=== PATIENT | female | born 1965 | race Caucasian/White ===

== ENCOUNTER → 2017-05-24 13:42 | Outpatient (CLI) | payer OTHER, SELFPAY ==
--- NOTE | 2017-05-24 13:52 | HPBI_ITS ---
MAMMOGRAPHY - BILATERAL DIAGNOSTIC REASON FOR EXAM: Female, 51 years old. Left breast lump and tenderness at the 5:00 position of the breast. PERTINENT HISTORY: Non-contributory. TECHNIQUE: Digital bilateral breast emerson (3D mammographic acquisition) in the CC and MLO projections. 2-D mediolateral oblique (MLO) and craniocaudad (CC) views of both breasts were obtained. Compression spot views of the left breast were obtained as well in the mediolateral oblique and craniocaudad projections. CAD: Full Field Digital Mammography with Computer Added Detection was performed. COMPARISON: Comparison is made with prior examination dated April 08, 2016 and April 02, 2014. FINDINGS: Breast Composition: The breasts are heterogeneously dense, which may obscure small masses. There is a 2 cm x 2.5 cm well-defined nodule in the retroareolar region of the left breast. Adjacent to this, a smaller well-defined nodule is seen. Correlation with ultrasound is recommended. No clustered microcalcification is seen. Stable appearance of the bilateral axillary lymph nodes. No other significant abnormalities are identified. HPBI/DIAG MAMM W/CAD, BILAT IMPRESSION: 2 nodular densities seen in the left breast as described. Correlation with ultrasound is recommended. ASSESSMENT CATEGORY: BIRADS Category 0: Incomplete. Need additional imaging evaluation. A letter regarding these results will be sent to the patient by the facility within 30 days. Approximately 10% of breast cancers are not detected by mammography. A normal mammogram should not delay biopsy of a clinically suspicious abnormality. Electronically Signed: Neo Fink MD at 15:48 EST Tel [phone], Service support ,
--- NOTE | 2017-05-24 13:53 | US_ITS ---
STUDY: ULTRASOUND BREAST - LEFT REASON FOR EXAM: Female, 51 years old. Palpable lump left breast. TECHNIQUE: Axial and longitudinal images of the LEFT breast were performed with a high resolution ultrasound transducer. COMPARISON: Comparison is made with prior mammogram done earlier today. FINDINGS: LEFT Breast: There is a 1.4 cm x 1.9 cm x 1.1 cm cyst at the 5:00 position in the breast at 3 cm from the nipple. This corresponds to the palpable abnormality. This also evidence of a 1.4 cm x 0.9 cm x 0.9 cm cyst at the 6:00 position of the breast at 3 cm from the nipple. US/Breast Limited Unilateral IMPRESSION: 2 cysts are seen in the left breast as described. Routine annual mammographic follow-up is recommended. ASSESSMENT CATEGORY: BIRADS Category 2: Benign. A letter regarding these results will be sent to the patient by the facility within 30 days. Electronically Signed: Neo Fink MD at 14:52 EST Tel [phone], Service support ,
== END ==
DX: N60.02 Solitary cyst of left breast (principal)
CPT/HCPCS: 76642; 77062; 77066; G0279

== ENCOUNTER → 2018-04-11 10:31 | Outpatient (CLI) | payer OTHER, SELFPAY ==
[2018-04-11 09:34] VITALS: BMI 36.4
--- NOTE | 2018-04-11 10:37 | VDLE_ITS ---
Reason For Study: Bilateral leg pain RIGHT LEFT GSV is normal. GSV is normal. CFV is compressible, spontaneous, phasic, CFV is compressible, spontaneous, phasic, competent and demonstrates normal competent, and demonstrates normal augmentation. augmentation. FV is compressible, spontaneous, phasic, FV is compressible, spontaneous, phasic, competent and demonstrates normal competent and demonstrates normal augmentation. augmentation. POP V is compressible, spontaneous, phasic, POP V is compressible, spontaneous, phasic, competent and demonstrates normal competent and demonstrates normal augmentation. augmentation. T/P Trunk is compressible. T/P Trunk is compressible. PTV is compressible. PTV is compressible. RT PerV is compressible. LT PerV is compressible. Procedure Exam performed in department. A preliminary report was called and/or faxed to [facility]. Interpretation Summary Deep veins of the lower extremities are bilaterally patent and compressible segmentally. There is no evidence of deep vein thrombosis on either side. Valvular competence appears intact within the proximal deep venous systems bilaterally. The greater saphenous veins appear bilaterally patent and compressible segmentally. Ordering Physician: Andrew Santiago Referring Physician: Jameson Mendoza Performed By: Erick Salomon RVT and Student
[2018-04-11 10:59] LABS: Hematocrit 38.5 % (37-47); Hemoglobin 12.7 g/dl (12.0-15.0); Mean Corpuscular Hgb 29.6 pg (27.0-32.0); Mean Corpuscular Volume 89.7 fL (81-99); Mean Platelet Vol. 9.6 fl (6.2-12.0); Platelet Count 250 K/mm3 (150-450); RBC Distribution Width CV 11.8 % (11.6-14.6); RBC Distribution Width SD 38.1 fl (35.1-43.9); Red Blood Count 4.29 M/mm3 (4.2-5.4); Scan Indicated on CBC? Y/N NO; White Blood Count 6.8 K/mm3 (4.4-11.0)
[2018-04-11 11:11] LABS: ALB/GLOB Ratio 0.9 RATIO (0.9-2.4); AST(SGOT) 16 U/L (15-37); Alanine Aminotransfer ALT/SGPT 19 U/L (13-56); Albumin, Serum 3.5 g/dL (3.2-5.0); Alkaline Phosphatase 94 U/L (45-117); Anion Gap 7 (5-15); BUN 15 mg/dL (7-18); BUN/Creat Ratio 20.7 RATIO (10-20); Calcium,Total 8.5 mg/dL (8.5-10.1); Chloride 105 mmol/L (98-107); Creatinine, Serum 0.72 mg/dL (0.55-1.02); EST Glomerular Filtration Rate 90 mL/min (>60); Est Glom Filt Rate - Afr Amer 109 mL/min (>60); Globulin 4.1 g/dL (2.2-4.2); Glucose 88 mg/dL (74-106); Potassium 3.7 mmol/L (3.5-5.1); Protein, Total 7.6 g/dL (6.4-8.2); Sodium Level 139 mmol/L (136-145)
[2018-04-11 11:54] LABS: D-Dimer Quantitative (DVT/PE) 0.69 FEU/ug/m (0.27-0.49)
--- OUTSIDE RECORDS SUMMARY | 2018-06-13 13:23 | XMS RPT_ITS ---
:1965 Author Organization [facility] Care Team Providers Name Role Phone Jameson Mendoza Attending Unavailable HAILEY BRADY Attending Unavailable HAILEY BRADY Primary Care Unavailable Andrew Santiago TELEHEALTH CASE MANAGER-C Attending Unavailable Andrew Santiago TELEHEALTH CASE MANAGER-Edgardo Referring Unavailable Jameson Mendoza Primary Care Unavailable PROBLEMS PROBLEMS DATE TYPE CONDITION / CODE ATTENDING STATUS SOURCE 04/11/2018 Unknown R60.0 - Andrew Santiago TELEHEALTH CASE MANAGER-C Active [place] Localized edema Community / R60.0(ICD-10) Hospital Repository 04/11/2018 Unknown M79.604 - Pain Andrew Santiago TELEHEALTH CASE MANAGER-C Active [place] in right leg / Community M79.604(ICD-10) Hospital Repository 04/11/2018 Unknown M79.605 - Pain Andrew Santiago TELEHEALTH CASE MANAGER-Edgardo Active [place] in left leg / Community M79.605(ICD-10) Hospital Repository 04/11/2018 Unknown Z86.711 - Santiago, Andrew TELEHEALTH CASE MANAGER-C Active [place] [facility] pulmonary [facility] embolism / Repository Z86.711(ICD-10) PROCEDURES PROCEDURES No Procedure Records FoundRESULTS RESULTS INTERNAL MEDICINE Observed: 04/13/2018 Status: F Source: [place] OFFICE VISIT 10:56 AM [facility] [place] [facility] [address] [place] [address] OFFICE VISIT Date of Service: 04/11/18 MR#: [id number] Acct: [id number] Name: KENAN ESPINOSA Rep #: [id number] : 1965 Provider: Jamseon Mendoza MD Age/Sex: 52/F Location: [facility] Status: Signed Intake Vital Signs04/11/18 Height 5 ft 5 in 04/11/18 Weight: 219 lb 04/11/18 Body Mass Index (BMI) 36.4 04/11/18 Blood Pressure 140/91 H Intake Visit Reasons: EST PCP Chief Complaint: Bilat Lower leg AND feet swelling AND pain Is patient in pain?: Yes (Bilat feet - walking ) Pain scale (1-10): 7 Allergies cephalexin monohydrate [From Keflex] Allergy (Verified 04/11/18 09:27) Other sulfamethoxazole [From Bactrim] Allergy (Verified 04/11/18 09:27) Other trimethoprim [From Bactrim] Allergy (Verified 04/11/18 09:27) Other Medications ALPRAZolam [Xanax] 0.5 mg PO QHS 12/22/15 [History Confirmed 04/11/18] doxycycline monohydrate 100 mg capsule 100 mg PO BID #14 cap 04/11/18 [Rx Confirmed 04/11/18] PFSH Medical History Staph aureus infection (Resolved) Pulmonary embolus (Resolved) Surgical History History of cholecystectomy (Acute) History of hysterectomy (Acute) History of oophorectomy (Acute) Family History Grandmother Ovarian cancer Sister Diabetes Type 1 Father Heart disease Grandmother Multiple sclerosis Social History Smoking Status: Current every day smoker alcohol intake: current alcohol intake frequency: holidays/special occasions only substance use type: does not use what type of physical activity do you participate in: walking HPI HPI Chief Complaint: Bilat Lower leg AND feet swelling AND pain Details: KENAN ESPINOSA, is a 52 F who presents to the office today for an acute visit of bilateral leg swelling and pain. Patient has a past medical history as listed above significant for pulmonary embolism. Patient presents today with bilateral lower extremity leg swelling that started three days ago. Patient stated she was at home all day doing things around the house and she noticed her feet getting swollen. Since Tuesday she states that the swelling has significantly increased and is having pain around ankle in right and left leg. Her pain is most intense at the ankle with walking. She describes her feet as warm to touch. Patient states she noticed today she was having a darker discoloration in her toes at times. Patient denies any shortness of breath, tachycardia, palpitations, or chest discomfort. Patient denies any other aggravating or alleviating factors. She states she is anxious because she had a history of a PE in 2011 after traveling an extended period of time. She was Xarelto for 1 year prophylactically after PE. She denies any recent travel or prolonged periods of sitting and activity. The patient otherwise denies any fever, chills, nausea, vomiting, shortness of breath, chest pain or pressure, palpitations, orthopnea, syncope or presyncopal episodes. ROS Const Constitutional: No chills, fatigue, fever(s), frequent falls, malaise, weakness, sleep problems or change in appetite Eyes Eyes: No blurry vision, change in vision, double vision, discharge or visual disturbances ENT ENT: No abnormal hearing, ear pain, ear pressure, tinnitus or dizziness/vertigo Resp Respiratory: No cough, shortness of breath or wheezing Cardio Cardiology: Positive for generalized swelling (Bilat lower legs AND feet); no chest pain at rest, chest pain with exertion, shortness of breath, dyspnea on exertion, irregular heart rhythm, lightheadedness, orthopnea, fast heart rate or palpitations Gastro GI: No abdominal pain, change in bowel habits, constipation, diarrhea, nausea/dyspepsia or vomiting Genitourinary-Female: No difficulty urinating, burning urination, painful urination, urinary incontinence, urinary frequency, urinary urgency, urinary hesitancy, urinary retention, Frequent nighttime urination/ nocturia, sexual problems, genital lesions, abnormal vaginal bleeding, pelvic pain, vaginal dryness, vaginal odor or Vaginal Itching Musc Musculoskeletal: Positive for joint pain (Bilat lower legs AND feet) and joint swelling (Lower legs AND feet); no back pain, limited range of motion, numbness, tingling or muscle weakness Skin Skin: No change in skin color, itching, rash or wounds Breast Breast: No breast lump or breast pain Neuro Neurology: No frequent falls, weakness, visual disturbances, abnormal hearing, numbness, tingling, unsteady gait/balance, dizziness, loss of vision or memory loss Psych Psychiatric: No change in appetite, No memory loss, No anxiety, No depression, No Thoughts of harming yourself/Others Endo Endocrine: No fatigue, heat intolerance, increased thirst/drinking, increased hunger or increased urination Aller/Imm Allergy/Immunologic: No wheezing, itchy eyes or seasonal allergy symptoms James/Lymp Hematologic/Lymphatic: No easy bleeding, easy bruising or enlarged lymph nodes Exam Const General: cooperative, comfortable, no acute distress Nutritional Appearance: well nourished, overweight Orientation: alert, oriented x3 Limitations: mental status not altered Neck Neck: normal visual inspection, no lymphadenopathy Resp Effort AND Inspection: normal respiratory effort, able to speak in complete sentences, normal respiratory pattern, symmetric chest movement, no audible wheezes, no cough Auscultation: Bilateral: Clear to Auscultation Cardio Palpation: normal PMI Rate: regular rate Heart Sounds: S1 normal, S2 normal, normal S1 and S2, no click, no gallops, no murmurs, no rubs Musc Musculoskeletal: Yes joint tenderness; no decreased ROM or muscle weakness Other: tenderness and warmth noted around bilateral ankles and warmth continues to b/l dorsal feet, pedal pulses +1, toes slightly cool to touch, negative homans sign bilateral Skin General: no rashes or lesions noted, elasticity normal, turgor normal Lesions: no lesions Rashes: no rashes Neuro General: alert, awake, oriented x3, CN's II-XI intact bilaterally Speech: speech normal Gait: normal gait Motor: muscle tone normal throughout Extrem General: normal to inspection, normal gait, pedal edema bilaterally, edema (bilateral lower extremities) Laterality: bilateral Psych Appearance: grossly normal Mental Status: mental status grossly normal Affect: normal affect Attitude: cooperative Thought Process: normal Assessment AND Plan Problems 1. Bilateral lower leg cellulitis L03.116; L03.115 2. Pain in both lower extremities M79.604; M79.605 3. History of pulmonary embolism Z86.711 Plan Due to patient history of presenting symptoms and assessment, venous duplex ultrasound ordered to check for DVT. Preliminary report came back negative for acute DVT. Lab work ordered and d-dimer level slightly elevated at 0.69. Due to DVT being ruled out and patient having no respiratory symptoms/cardiac symptoms the plan will be to treat patient empirically for cellulitis with doxycycline 100 mg PO BID for 10 days. Reinforced again with patient signs and symptoms of pulmonary embolism that require urgent medical attention and instructed her that if these occur she should go immediately to the emergency department. She again denies any chest pain, shortness of breath, or increased heart rate. Patient to follow-up this upcoming Tuesday for establishment visit or sooner if needed. This note was generated with [employer] dictation software. It may contain incorrect words, spelling, and punctuation that were not noted in checking the note before signing. Orders Orders: Medications New: Coding Level of Care Code Off vis,new,level 3 Diagnoses Bilateral lower leg cellulitis L03.116; L03.115 Pain in both lower extremities M79.604; M79.605 History of pulmonary embolism Z86.711 04/13/18 1056 <Electronically signed by Andrew MERRITT> Date Andrew MERRITT Cosigner Signature: Date (if applicable) CC: VENOUS DUPLEX LOWER Observed: 04/11/2018 Status: F Source: [place] EXTREMITY 4:38 PM [facility] [place] [facility] Cardiovascular Services [facility] [place] [address] Venous Duplex US - Samy Extrem 04/11/18 1039 MR#: [id number] Acct: [id number] Name: KENAN ESPINOSA Rep #: [id number] : 1965 52 From: Dejon Godinez MD Attending Dr: Andrew Santiago NP Status: REG CLI Ordering Dr: Andrew Santiago NP-C Date: 04/11/18 Location: [facility] Sex: F C Admitted: Reason For Study: Bilateral leg pain RIGHT LEFT GSV is normal. GSV is normal. CFV is compressible, spontaneous, phasic, CFV is compressible, spontaneous, phasic, competent and demonstrates normal competent, and demonstrates normal augmentation. augmentation. FV is compressible, spontaneous, phasic, FV is compressible, spontaneous, phasic, competent and demonstrates normal competent and demonstrates normal augmentation. augmentation. POP V is compressible, spontaneous, phasic, POP V is compressible, spontaneous, phasic, competent and demonstrates normal competent and demonstrates normal augmentation. augmentation. T/P Trunk is compressible. T/P Trunk is compressible. PTV is compressible. PTV is compressible. RT PerV is compressible. LT PerV is compressible. Procedure Exam performed in department. A preliminary report was called and/or faxed to [facility]. Interpretation Summary Deep veins of the lower extremities are bilaterally patent and compressible segmentally. There is no evidence of deep vein thrombosis on either side. Valvular competence appears intact within the proximal deep venous systems bilaterally. The greater saphenous veins appear bilaterally patent and compressible segmentally. Ordering Physician: Andrew Santiago Referring Physician: Jameson Mendoza Performed By: Erick Salomon RVT and Student 04/11/18 1638 Date Dejon Godinez MD CC: Jameson Mendoza MD; Andrew Santiago NP Date Dictated: 04/11/18 1039 Date Transcribed: 04/11/18 1638 Quantitative Software Engineer: Signed CBC-COMPLETE BLOOD CNT Collected: 04/11/2018 Status: F Source: [place] NO DIFF 10:39 AM [facility] [place] TYPE CODE TESTS RESULT OUT OF RANGE REFERENCE UNITS LAB L100.1000 4.4-11.0 K/mm3 Normal WBC 6.8 LAB L100.1200 4.2-5.4 M/mm3 Normal RBC 4.29 LAB L100.1300 12.0-15.0 g/dl Normal HGB 12.7 LAB L100.1400 37-47 % Normal HCT 38.5 LAB L100.1500 81-99 fL Normal MCV 89.7 LAB L100.1600 27.0-32.0 pg Normal MCH 29.6 LAB L100.1700 32-36 g/gl Normal MCHC 33.0 LAB L100.1810 11.6-14.6 % Normal RDW CV 11.8 LAB L100.1820 35.1-43.9 fl Normal RDW SD 38.1 LAB L100.1900 150-450 K/mm3 Normal PLT 250 LAB L100.2000 6.2-12.0 fl Normal MPV 9.6 Performed By: #### L100.0500 #### [facility] [address] [place], [place], [address] COMPREHENSIVE METABOLIC Collected: 04/11/2018 Status: F Source: [place] PROFIL 10:39 AM [facility] [place] TYPE CODE TESTS RESULT OUT OF RANGE REFERENCE UNITS LAB L501.0100 74-106 mg/dL Normal GLU 88 Result Comment: Please note revised GLUCOSE reference range effective 2017. LAB L501.1000 7-18 mg/dL Normal BUN 15 LAB L501.1100 0.55-1.02 mg/dL Normal CREAT,SERUM 0.72 Result Comment: The validity of the calculated GFR AND GFRAA in patients over 70 years has not been determined. Clinical correlation is essential. LAB L501.1110 >60 mL/min Normal EST GFR 90 Result Comment: Non- GFR Calc LAB L501.1115 >60 mL/min Normal EST GFR - AA 109 Result Comment: GFR Calc LAB L501.1300 10-20 RATIO High BUN/CRE 20.7 LAB L501.1500 6.4-8.2 g/dL T Normal PROT 7.6 LAB L501.1800 3.2-5.0 g/dL Normal ALB 3.5 LAB L501.1950 2.2-4.2 g/dL Normal GLOB 4.1 LAB L501.2000 0.9-2.4 RATIO Normal A/G 0.9 LAB L501.2200 8.5-10.1 mg/dL CA Normal 8.5 LAB L501.4100 15-37 U/L Normal AST 16 LAB L501.4305 45-117 U/L Normal ALK P 94 LAB L501.4405 13-56 U/L Normal ALT 19 LAB L501.4600 0.20-1.00 mg/dL T Normal BILI 0.30 LAB L501.5300 136-145 mmol/L NA Normal 139 LAB L501.5600 3.5-5.1 mmol/L K Normal 3.7 LAB L501.5900 98-107 mmol/L CL Normal 105 LAB L501.6100 21.0-32.0 mmol/L Normal CO2 27.0 LAB L501.6200 5-15 Normal GAP 7 Performed By: #### L500.4050 #### [facility] [address] [place], [address] D-DIMER QUANTITATIVE Collected: 04/11/2018 Status: F Source: [place] (DVT/PE) 10:39 AM [facility] TYPE CODE TESTS RESULT OUT OF RANGE REFERENCE UNITS LAB L300.8000 0.27-0.49 FEU/ug/m High alert D-DIMER 0.69 QUANT Result Comment: D-Dimer ELEVATED (>0.49): Additional studies and clinical assessments are indicated to conclude diagnosis of: Deep Vein Thrombosis (DVT) or Pulmonary Embolism (PE) RESULTS CALLED TO JACKELINE FERRERA 04/11/18 1154 Sonya Dee. REPORT READ BACK BY SAME. Performed By: #### L300.8000 #### [facility] [address] [place], [address] BREAST LIMITED Observed: 05/24/2017 Status: F Source: [place] UNILATERAL 1:53 PM [facility] REPOSITORY [facility] Imaging Services [address] [place] [address] Breast Limited Unilateral MR#: [id number] Acct: [id number] Name: KENAN ESPINOSA Rep #: [id number] : 1965 F 51 From: Neo Fink MD PCP: OUT OF TOWN DOCTOR Status: REG CLI Study: Breast Limited Unilateral Date of Exam: 05/24/17 Exam# [id number] Ordering Dr: ELIJAH BAUER STUDY: ULTRASOUND BREAST - LEFT REASON FOR EXAM: Female, 51 years old. Palpable lump left breast. TECHNIQUE: Axial and longitudinal images of the LEFT breast were performed with a high resolution ultrasound transducer. COMPARISON: Comparison is made with prior mammogram done earlier today. FINDINGS: LEFT Breast: There is a 1.4 cm x 1.9 cm x 1.1 cm cyst at the 5:00 position in the breast at 3 cm from the nipple. This corresponds to the palpable abnormality. This also evidence of a 1.4 cm x 0.9 cm x 0.9 cm cyst at the 6:00 position of the breast at 3 cm from the nipple. US/Breast Limited Unilateral IMPRESSION: 2 cysts are seen in the left breast as described. Routine annual mammographic follow-up is recommended. ASSESSMENT CATEGORY: BIRADS Category 2: Benign. A letter regarding these results will be sent to the patient by the facility within 30 days. Electronically Signed: Neo Fink MD at 14:52 EST Tel [phone], Service support , CC: ELIJAH BAUER; OUT OF TOWN DOCTOR Quantitative Software Engineer: Signed DIAG MAMM W/CAD, Observed: 05/24/2017 Status: F Source: [place] BILAT 1:53 PM [facility] [place] [facility] Imaging Services [address] [place] [address] DIAG MAMM W/CAD, BILAT MR#: [id number] Acct: [id number] Name: KENAN ESPINOSA Rep #: [id number] : 1965 F 51 From: Neo Fink MD PCP: OUT OF TOWN DOCTOR Status: REG CLI Study: DIAG MAMM W/CAD, BILAT Date of Exam: 05/24/17 Exam# [id number] Ordering Dr: ELIJAH BAUER MAMMOGRAPHY - BILATERAL DIAGNOSTIC REASON FOR EXAM: Female, 51 years old. Left breast lump and tenderness at the 5:00 position of the breast. PERTINENT HISTORY: Non-contributory. TECHNIQUE: Digital bilateral breast emerson (3D mammographic acquisition) in the CC and MLO projections. 2-D mediolateral oblique (MLO) and craniocaudad (CC) views of both breasts were obtained. Compression spot views of the left breast were obtained as well in the mediolateral oblique and craniocaudad projections. CAD: Full Field Digital Mammography with Computer Added Detection was performed. COMPARISON: Comparison is made with prior examination dated April 08, 2016 and April 02, 2014. FINDINGS: Breast Composition: The breasts are heterogeneously dense, which may obscure small masses. There is a 2 cm x 2.5 cm well-defined nodule in the retroareolar region of the left breast. Adjacent to this, a smaller well-defined nodule is seen. Correlation with ultrasound is recommended. No clustered microcalcification is seen. Stable appearance of the bilateral axillary lymph nodes. No other significant abnormalities are identified. HPBI/DIAG MAMM W/CAD, BILAT IMPRESSION: 2 nodular densities seen in the left breast as described. Correlation with ultrasound is recommended. ASSESSMENT CATEGORY: BIRADS Category 0: Incomplete. Need additional imaging evaluation. A letter regarding these results will be sent to the patient by the facility within 30 days. Approximately 10% of breast cancers are not detected by mammography. A normal mammogram should not delay biopsy of a clinically suspicious abnormality. Electronically Signed: Neo Fink MD at 15:48 EST Tel [phone], Service support , CC: ELIJAH BAUER; OUT OF TOWN DOCTOR Quantitative Software Engineer: Signed ALLERGIES ALLERGIES DATE TYPE / CODE NAME / CODE REACTION SEVERITY SOURCE 04/11/2018 Drug cephalexin Other Unknown [place] Allergy/416 monohydrate/F0000 [place] [id number]([facility] [address]([facility] ED CT) Repository 04/11/2018 Drug sulfamethoxazole/ Other Unknown [place] Allergy/416 [id number]([facility] [address]([facility] ED CT) Repository 04/11/2018 Drug trimethoprim/F006 Other Unknown [place] Allergy/416 384148(RXNORM) [place] [id number]([facility] ED CT) Repository ENCOUNTERS ENCOUNTERS ADMIT/DISCHARGE ACCOUNT ADMITTING ENCOUNTER LOCATION SOURCE NUMBER CLASS 04/11/2018 [id number] Ambulatory [place] 4 [facility] ing:[facility] Repository 04/11/2018/ [id number] Ambulatory BMSBuilding:B [place] 9 2 MS.BIM [facility] Repository 05/24/2017 [id number] Ambulatory [place] 6 [facility] ing:[facility] Repository PAYERS PAYERS ENCOUNTER GUARANTOR PAYER SUBSCRIBER SOURCE 04/11/2018 KENAN Reynoso Primary [place] [id number] Insurance:Megan BROWNB: [place], [place] Number: [id number] [address]Wrw: (992) [id number] Repository [phone] () Date:5615-29-14[address], [place] [address]BJ: 04/11/2018 Secondary NOT GIVENUNK [place] Insurance:SELF PAY [facility] Number: Effective Repository Date:2018-04-11 04/11/2018 KENAN ESPINOSA670 Primary KENAN BROWNB: [place] Insurance:[facility] [id number] [facility] [place] Number: [facility] [address]Bnq: ([phone]) [id number] Repository [phone] () Date:6968-03-98[address], [place] [address]DQ: 04/11/2018 Secondary NOT GIVENUNK [place] Insurance:SELF PAY [facility] Number: Effective Repository Date:2018-04-11 05/24/2017 KENAN MCNAIR0 Primary KENAN BROWNB: [place] Insurance:[id number] [address] [id number]: ([phone]) Number: Repository [phone] () [id number] Date:3936-28-03[address], [place] [address]LZ: 05/24/2017 Secondary NOT GIVENUNK [place] Insurance:SELF PAY [facility] Number: Effective Repository Date:2017-05-23
== END ==
PROVIDERS: Family Provider Internal Medicine; PCP Internal Medicine; Referring Provider Nurse Practitioner Family; Visit Provider Nurse Practitioner Family
DX: R60.0 Localized edema (principal); M79.604 Pain in right leg; M79.605 Pain in left leg; Z86.711 Personal history of pulmonary embolism
CPT/HCPCS: 36415; 80053; 85027; 85379; 93970

== ENCOUNTER → 2018-04-17 15:39 | Outpatient (CLI) | payer OTHER, SELFPAY ==
[2018-04-17 14:49] VITALS: BMI 36.4
--- NOTE | 2018-04-17 15:44 | RAD_ITS ---
STUDY: X-RAY - LUMBAR SPINE REASON FOR EXAM: Female, 52 years old. Back pain TECHNIQUE: 5 view(s) of the lumbar spine were obtained. COMPARISON: None FINDINGS: Normal lumbar lordosis. There is no substantial scoliosis. There is a normal alignment of the vertebrae. Normal vertebral bodies and endplates. Normal disc space heights. The soft tissue structures are unremarkable. RAD/L/S Spine Min 4 Views IMPRESSION: Normal x-ray examination of the lumbar spine. Electronically Signed: Denilson Stock MD at 7:42 EST , Service support ,
== END ==
PROVIDERS: Family Provider Internal Medicine; PCP Internal Medicine; Referring Provider Internal Medicine; Visit Provider Internal Medicine
DX: G62.9 Polyneuropathy, unspecified (principal); M54.5 Low back pain
CPT/HCPCS: 72110

== ENCOUNTER → 2018-04-22 10:41 | Outpatient (CLI) | payer OTHER, SELFPAY ==
[2018-04-17 14:49] VITALS: BMI 36.4
[2018-04-22 11:48] LABS: Erythrocyte Sedimentation Rate 31 mm/hr (0-30)
[2018-04-22 12:27] LABS: Hemoglobin A1c 5.5 % (4.2-6.3)
[2018-04-22 12:36] LABS: CPK Total, Creatine Kinase 59 U/L (26-192); Rheumatoid Factor < 10.0 IU/mL (<15); Thyroid Stim Hormone (TSH) 2.34 uIU/mL (0.358-3.74)
[2018-04-24 11:42] LABS: HIV - WCH Non-Reactive (Nonreactive); Vitamin B12 322 pg/mL (211-911)
[2018-04-24 14:07] LABS: RNP Ab 0.6 AI (0.0-0.9); Smith Ab <0.2 AI (0.0-0.9)
[2018-04-25 08:55] LABS: ANTINUCLEAR ANTIBODIES DIRECT Negative (Negative)
[2018-04-27 20:19] LABS: Arsenic, Urine 24 H 19 ug/24 hr (0-50); PROEL- Albumin 3.3 g/dL (2.9-4.4); PROEL- Alpha-1 Globulin 0.3 g/dL (0.0-0.4); PROEL- Alpha-2 Globulin 0.9 g/dL (0.4-1.0); PROEL- Beta Globulin 1.1 g/dL (0.7-1.3); PROEL- Globulin, Total 3.4 g/dL (2.2-3.9); PROEL- TOTAL PROTEIN 6.7 g/dL (6.0-8.5)
[2018-04-28 16:50] LABS: Hep C Antibodies 0.1 s/co ratio (0.0-0.9)
[2018-04-28 16:51] LABS: ARSENIC (TOTAL), URINE 17 ug/L (0-50)
== END ==
PROVIDERS: Family Provider Internal Medicine; PCP Internal Medicine; Referring Provider Psychiatry & Neurology Neurology; Visit Provider Psychiatry & Neurology Neurology
DX: G62.9 Polyneuropathy, unspecified (principal); R20.2 Paresthesia of skin; R53.1 Weakness; R53.83 Other fatigue; R73.9 Hyperglycemia, unspecified
CPT/HCPCS: 36415; 82175; 82550; 82570; 82607; 82746; 83036; 83655; 83825; 84165; 84443; 85652; 86038; 86235; 86431; 86703; 86803

== ENCOUNTER → 2018-04-26 17:11 | Outpatient (CLI) | payer OTHER, SELFPAY ==
[2018-04-17 14:49] VITALS: BMI 36.4
--- NOTE | 2018-04-26 17:11 | MRI_ITS ---
HISTORY: bilateral leg weakness, stabbing/prickling pain, swelling x 2 weeks EXAM/TECHNIQUE: MR Spine Lumbar W/O Contrast: 1.5 Estephanie magnet. COMPARISON: 07/15/14 CT abdomen pelvis. 04/17/18 lumbar spine radiographs. FINDINGS: # of images incl. paperwork: 130 Alignment anatomic. No fracture or concerning signal changes in the vertebrae. Scattered incidental vertebral body hemangiomas are noted. Disc height and signal preserved with very little disc degeneration for age. Mild facet degeneration mid to lower lumbar spine. Conus medullaris terminates at the level of the L1 superior endplate with normal contour and signal. No significant spinal canal or foraminal narrowing. No evidence of nerve root impingement. Normal arborization of the cauda equina. Paraspinal soft tissues unremarkable. MRI/Spine Lumbar (Routine) IMPRESSION: Very mild facet degeneration for age. No evidence of nerve root impingement or etiology for radiculopathy identified. at 0413 Reported and signed by: Roman Gutierrez MD Electronically Signed: Roman Gutierrez, at 4:12 EST Tel , Service support ,
== END ==
PROVIDERS: Family Provider Internal Medicine; PCP Internal Medicine; Referring Provider Internal Medicine; Visit Provider Internal Medicine
DX: M54.5 Low back pain (principal)
CPT/HCPCS: 72148

== ENCOUNTER → 2018-05-03 08:23 | Outpatient (CLI) | payer OTHER, SELFPAY ==
[2018-05-02 14:58] VITALS: BMI 36.4
== END ==
PROVIDERS: Family Provider Internal Medicine; PCP Internal Medicine; Referring Provider Internal Medicine; Visit Provider Internal Medicine
DX: R79.89 Other specified abnormal findings of blood chemistry (principal); R59.0 Localized enlarged lymph nodes
CPT/HCPCS: 36415; 71275; 85379; Q9967

== ENCOUNTER → 2018-05-03 14:21 | Outpatient (CLI) | payer OTHER, SELFPAY ==
[2018-05-02 14:58] VITALS: BMI 36.4
--- NOTE | 2018-05-03 14:23 | CT_ITS ---
STUDY: CTA CHEST REASON FOR EXAM: Female, 52 years old. Intermittent chest pain. Lower extremity swelling. Elevated d-dimer. RADIATION DOSAGE (If Supplied By Facility): CTDIvol = ( 18.42 ) mGy, DLP = ( 628.67 ) mGycm TECHNIQUE: The examination was performed with the intravenous administration of Isovue 370 100mL IV. Post-processing of the angiographic images was performed, with multiplanar reformation and 3D reconstruction. Individualized dose optimization techniques were used for this CT. COMPARISON: None. FINDINGS: Normal enhancement of the main pulmonary artery and right and left pulmonary arteries. Normal enhancement of the bilateral peripheral pulmonary arteries. There is no demonstrated pulmonary embolism. Normal thoracic aorta and visualized great vessels. There is no demonstrated aortic dissection. Normal heart and pericardium. Multiple enlarged mediastinal lymph nodes. The largest is in the right paratracheal region. This measures 2.4 cm x 3.3 cm. Enlarged subcarinal lymph nodes as well as right hilar lymph node measuring 3 cm x 2.4 cm. Normal visualized trachea and bronchi. The lungs are well expanded. Normal pulmonary parenchyma. Normal pleura. Normal chest wall structures. There are degenerative changes of thoracic spine. Small hiatal hernia. 8.8 mm cyst in the anterior aspect of the right lobe of the liver. There is also evidence of a 7.6 mm cyst in the mid lateral aspect of the right lobe of the liver. CT/CTA Chest W/WO Contrast IMPRESSION: Enlarged mediastinal and right hilar lymph nodes. There is no evidence of pulmonary embolism. Electronically Signed: Neo Fink MD at 15:35 EST , Service support ,
== END ==
PROVIDERS: Family Provider Internal Medicine; PCP Internal Medicine; Referring Provider Internal Medicine; Visit Provider Internal Medicine
DX: R79.89 Other specified abnormal findings of blood chemistry (principal); R59.0 Localized enlarged lymph nodes
CPT/HCPCS: 71275; Q9967

== ENCOUNTER → 2018-05-05 09:55 | Outpatient (CLI) | payer OTHER, SELFPAY ==
[2018-05-02 14:58] VITALS: BMI 36.4
[2018-05-05 10:42] LABS: Absolute Lymphocyte Count 1.46 X10^3/ul (0.83-4.51); Absolute Neutrophil Count 3.4 X10^3/uL (2.0-7.7); Basophil# 0.02 X10^3/uL; Basophil% 0.4 % (0-1); Eosinophil# 0.16 X10^3/uL; Hematocrit 41.4 % (37-47); Hemoglobin 13.4 g/dl (12.0-15.0); Lymphocyte # 1.46 X10^3/ul (4.0); Lymphocyte % 27.2 % (19-41); Mean Corp Hgb Conc 32.4 g/gl (32-36); Mean Corpuscular Hgb 28.9 pg (27.0-32.0); Mean Corpuscular Volume 89.4 fL (81-99); Mean Platelet Vol. 9.8 fl (6.2-12.0); Monocyte# 0.34 X10^3/uL; Monocyte% 6.3 % (0-10); Neutrophil # 3.37 X10^3/uL (2.7-7.7); Neutrophil % 62.9 % (47-70); Platelet Count 286 K/mm3 (150-450); RBC Distribution Width CV 11.9 % (11.6-14.6); RBC Distribution Width SD 38.1 fl (35.1-43.9); Red Blood Count 4.63 M/mm3 (4.2-5.4); White Blood Count 5.4 K/mm3 (4.4-11.0)
[2018-05-05 10:50] LABS: POSITIVE COUNT NO; POSITIVE DIFFERENTIAL NO; POSITIVE MORPHOLOGY NO
[2018-05-05 11:12] LABS: BUN 17 mg/dL (7-18); Creatinine, Serum 0.79 mg/dL (0.55-1.02); Glucose 99 mg/dL (74-106)
[2018-05-05 11:13] LABS: Anion Gap 8 (5-15); BUN/Creat Ratio 21.4 RATIO (10-20); Calcium,Total 8.5 mg/dL (8.5-10.1); Chloride 106 mmol/L (98-107); EST Glomerular Filtration Rate 81 mL/min (>60); Est Glom Filt Rate - Afr Amer 98 mL/min (>60); Potassium 3.9 mmol/L (3.5-5.1); Sodium Level 139 mmol/L (136-145)
== END ==
PROVIDERS: Family Provider Internal Medicine; PCP Internal Medicine; Referring Provider Internal Medicine; Visit Provider Internal Medicine
DX: I10 Essential (primary) hypertension (principal); R59.1 Generalized enlarged lymph nodes
CPT/HCPCS: 36415; 80048; 85025

== ENCOUNTER → 2018-05-09 07:30 | Outpatient (CLI) | payer OTHER, SELFPAY ==
[2018-05-02 14:58] VITALS: BMI 36.4
--- NOTE | 2018-05-09 07:31 | CT_ITS ---
STUDY: CT ABDOMEN AND PELVIS WITH CONTRAST REASON FOR EXAM: Female, 52 years old. Mediastinal lymphadenopathy RADIATION DOSAGE (If Supplied By Facility): CTDIvol = ( 16.96 ) mGy, DLP = ( 1094.27 ) mGycm TECHNIQUE: Transaxial images were obtained from the dome of the diaphragm to the symphysis pubis without oral contrast. Isovue 300 100 IV was administered. Sagittal and coronal images were reconstructed. Individualized dose optimization techniques were used for this CT. COMPARISON: None. FINDINGS: There is a noncalcified 3 mm subpleural nodule the posterior lateral left lung base. The visualized portions of the heart are within normal limits. There are at least 2 hypoattenuated lesion seen within the periphery of the liver parenchyma. Gallbladder is absent. No biliary duct dilatation.. Normal spleen. Normal pancreas. Normal bilateral adrenal glands. Hypoattenuated lesion within the left lower renal pole measuring near water density. Normal ureters. Normal visualized stomach. Normal small intestine. Normal colon. The appendix is visualized and appears normal. Normal abdominal aorta. Normal inferior vena cava. Normal retroperitoneum. Normal urinary bladder. Uterus is surgically absent. Small fat-containing umbilical hernia. Normal osseous structures. CT/Abdomen/Pelvis WITH Contrast IMPRESSION: 1. No evidence of an acute intra-abdominal abnormality. 2. Hypoattenuated lesions within the liver which likely represent cysts versus hemangiomas. Dedicated MR imaging could be obtained for more definitive characterization. 3. Simple appearing left lower renal pole cyst. 4. Small fat-containing umbilical hernia. 5. 3 mm noncalcified nodule within the subpleural region of the left lateral lung base. Electronically Signed: Floyd Cedeño MD at 3:30 EST Tel , Service support ,
== END ==
PROVIDERS: Family Provider Internal Medicine; PCP Internal Medicine; Referring Provider Internal Medicine; Visit Provider Internal Medicine
DX: R59.0 Localized enlarged lymph nodes (principal); M79.89 Other specified soft tissue disorders; R79.89 Other specified abnormal findings of blood chemistry
CPT/HCPCS: 74177; Q9967

== ENCOUNTER → 2018-05-11 12:57 | Outpatient (CLI) | payer OTHER, SELFPAY ==
[2018-05-11 06:24] VITALS: BMI 36.2
== END ==
PROVIDERS: Family Provider Internal Medicine; PCP Internal Medicine; Referring Provider Internal Medicine Critical Care Medicine; Visit Provider Internal Medicine Critical Care Medicine
DX: R59.0 Localized enlarged lymph nodes (principal)
CPT/HCPCS: 87385

== ENCOUNTER → 2018-06-13 07:40 | Outpatient (CLI) | payer OTHER, SELFPAY ==
[2018-06-02 13:02] VITALS: BMI 36.2
[2018-06-13 08:14] LABS: Prothrombin Time (Protime)PT. 12.9 SECONDS (11.7-14.9)
== END ==
PROVIDERS: Family Provider Internal Medicine; PCP Internal Medicine; Referring Provider Internal Medicine Critical Care Medicine; Visit Provider Internal Medicine Critical Care Medicine
DX: R59.0 Localized enlarged lymph nodes (principal)
CPT/HCPCS: 36415; 85610

== ENCOUNTER 2018-06-16 11:22 | Day surgery (SDC) | payer OTHER, SELFPAY ==
[2018-05-11 06:24] VITALS: BMI 36.2
[2018-06-02 13:02] VITALS: BMI 36.2
--- NOTE | 2018-06-14 10:45 | HP.PCM_ITS ---
Problem List (1) Mediastinal lymphadenopathy Status: Chronic History of Present Illness Date of Admission: 06/16/18 The patient is a 52-year-old female who presents to [facility] today to undergo an elective EBUS procedure due to the presence of mediastinal lymphadenopathy. A CTA chest was obtained on May 03, 2018 due to intermittent chest pain, lower extremity edema and an elevated d-dimer level. That imaging study showed no evidence for pulmonary embolism. However, multiple enlarged mediastinal lymph nodes were noted. In particular, paratracheal lymphadenopathy, subcarinal and right hilar lymphadenopathy was identified. The patient also had a follow- up CT abdomen and pelvis completed which was documented to reveal a 3 mm lower lobe pulmonary nodule. She does endorse the presence of fatigue and night sweats. The patient has a limited smoking history of 5-6 years duration, having quit completely in late summer 2017. However, she does have secondhand smoke exposure, as she is currently to a smoker. The patient has had recent TB testing which was negative. Past Medical History Past Medical History (Chronic Problems): Chronic Problems (Last Reviewed 06/02/18 @ 13:02 by Arpita Addison) Mediastinal lymphadenopathy (Chronic) Hypertension (Chronic) Swelling of both lower extremities (Chronic) Pulmonary embolism (Chronic) Medical History: Medical History (Last Reviewed 06/02/18 @ 13:02 by Arpita Addison) Mediastinal lymphadenopathy (Chronic) R59.0 Staph aureus infection (Resolved) A49.01 2015 Leg & 2016 Axilla Rt Pulmonary embolus (Resolved) I26.99 Allergies cephalexin monohydrate [From Keflex] Allergy (Verified 06/13/18 09:53) Other SEVERE ABDOMINAL PAIN UNSURE IF IT WAS FROM KEFLEX OR BACTRIM SINCE THEY WERE TAKEN TOGETHER sulfamethoxazole [From Bactrim] Allergy (Verified 06/13/18 09:53) Other SEVERE ABDOMINAL PAIN UNSURE IF IT WAS FROM KEFLEX OR BACTRIM SINCE THEY WERE TAKEN TOGETHER trimethoprim [From Bactrim] Allergy (Verified 06/13/18 09:53) Other SEVERE ABDOMINAL PAIN UNSURE IF IT WAS FROM KEFLEX OR BACTRIM SINCE THEY WERE TAKEN TOGETHER Home Medications: Ambulatory Orders Medication Instructions Recorded ALPRAZolam [Xanax] 0.5 mg PO PRN PRN 12/22/15 compression stocking, knee See Dose Instructions .ROUTE 05/02/18 high,regular length,medium .MEDSUPPLY #4 ea Gabapentin [Neurontin] 300 mg PO QHS 06/13/18 Surgical History: Surgical History (Last Reviewed 06/02/18 @ 13:02 by Arpita Addison) History of cholecystectomy Z90.49 2014 History of hysterectomy Z90.710 Partial - 2014 History of oophorectomy 2013 Surgical History: no surgical history Smoking Status: Former smoker Review of Systems Constitutional: Reports: Fatigue HEENT: Reports: Difficulty Swallowing Cardiovascular: Denies: Chest Pain, Palpitations Respiratory: Denies: Cough, Shortness of breath at rest, Sputum production Gastrointestinal: Denies: Abdominal Pain, Nausea, Vomiting Genitourinary: Denies: Dysuria Musculoskeletal: Denies: Joint Pain, Joint Tenderness Skin: Denies: Rash, Wounds Neurological: Denies: Numbness, Tingling, Focal weakness Psychiatric: Denies: Anxiety, Depression, Homicidal Ideations, Suicidal Ideations Hematologic/ Lymphatic: Denies: Easy Bruising, Easy Bleeding VTE Information - Inpt Only VTE Present on Admission: No VTE Mechan Device Prophylaxis: None VTE Pharm Prophylaxis ordered?: No Reason prophylaxis not ordered:: Treatment Not Indicated - Physical Exam Comment: See Pulmonary Office Visit note, dated 05/11/18 Body Mass Index (BMI) 36.2 Assessment/Plan All Active Problems (Last Reviewed 06/02/18 @ 13:02 by Arpita Addison) Groin pain (Acute) Segmental and somatic dysfunction of thoracic region (Acute) Segmental and somatic dysfunction of cervical region (Acute) Low back pain (Acute) Neuropathy (Acute) Staph aureus infection (Resolved) Pulmonary embolus (Resolved) Abscess of right arm (Acute) Assessment & Plan 1. Mediastinal lymphadenopathy R59.0 Recent CTA chest completed May 03, 2018 revealed evidence of nonspecific adenopathy, most pronounced in the paratracheal regions, subcarinal region and right hilum. The patient denied any recent pulmonary infections. She does report symptoms of fatigue and night sweats. While the patient's adenopathy is very nonspecific, but could certainly represent an underlying neoplastic, infectious or inflammatory disorder. Clinical considerations include lymphoma, sarcoidosis and histoplasmosis. Given the concerns noted about the patient's adenopathy, I discussed the possibility of proceeding with transbronchial needle aspiration of the aforementioned lymph nodes via EBUS. Following a discussion of the risks and benefits of bronchoscopy, the patient has elected to proceed with the procedure. We will follow-up with the patient after the procedure, once pathology results are made available.
[2018-06-16] VITALS (7 sets, daily range): BP systolic 134–178; BP diastolic 80–100; PULSE 70–87; RESP 16–18; TEMP 36.4–36.8; O2SAT 96–100; BMI 35.9
--- NOTE | 2018-06-16 | FLU_PTH ---
PATIENT: KENAN ESPINOSA LOC: EN U#:[id number] AGE/SX: 52/F ROOM: RE06/16/[address]: Dr. Adonis Cavanaugh DO : 1965 BED: DIS: 06/16/2018 SPEC #: [id number] RECD: 06/16/18 14:19 STATUS: MARY RE #: [id number] DALIA: 06/16/18 00:[address]: Adonis Cavanaugh DEPT: CYTOLOGY RECD BY: Floyd Wilson ENTERED: 06/16/18 14:22 SP TYPE: Fluid OTHR DR: Dr. Jameson Mendoza MD Tissues: A - Lung, NOS B - Lung, NOS C - Lung, NOS D - Lung, NOS E - Lung, NOS F - Lung, NOS G - Lung, NOS H - Lung, NOS I - Lung, NOS J - Lung, NOS K - Lung, NOS Procedures: PAS Fungus (control) Special Stain Group II Special Stain Group I Surgery Specimen Level IV AFB Stain (control) Cytospin Fluid Cytology Other HEADER OPERATION: EBUS and TBNA PRE-OP DIAGNOSIS: Mediastinal LAD TISSUE SUBMITTED: A-C - EBUS FNA site 4R, D-F - EBUS FNA site 7, G & H - EBUS FNA site 10R, I - Site 4R (paratracheal) cell block, J - Site 7 (subcarina) cell block, K - Site 10R (hilar) cell block DIAGNOSIS CYTOLOGY A. EBUS, fine needle aspiration #1, site 4R (smears): A few respiratory epithelial cells and lymphocytes are noted. Negative for malignant cells. B. EBUS, fine needle aspiration #2, site 4R (smears): Adequate for evaluation. Numerous lymphocytes are noted. A few histiocytes suggestive of granuloma formation are noted. Negative for malignant cells. C. EBUS, fine needle aspiration #3, site 4R (smears): Adequate for evaluation. Numerous lymphocytes are noted. A few granulomas are also noted. Negative for malignant cells. D. EBUS, fine needle aspiration #4, site 7 (smears): Adequate for evaluation. Numerous lymphocytes are noted. Numerous granulomas are noted. Negative for malignant cells. E. EBUS, fine needle aspiration #5, site 7 (smears): Adequate for evaluation. Numerous lymphocytes are noted. Negative for malignant cells. A few histiocytes suggestive of granuloma formation are noted. F. EBUS, fine needle aspiration #6, site 7 (smears): Respiratory epithelial cells and a few lymphocytes are noted. Negative for malignant cells. G. EBUS, fine needle aspiration #7, site 10R (smears): Respiratory epithelial cells, a few lymphocytes and macrophages are noted. Negative for malignant cells. H. EBUS, fine needle aspiration #8, site 10R (smears): Adequate for evaluation. Numerous lymphocytes are noted. Granulomas are also noted. Negative for malignant cells. I. TBNA, site 4R (cell block): Numerous non-necrotizing granulomas are noted. Special stains for acid fast bacilli and fungi are negative for organisms; matched controls are appropriate. See comment. J. TBNA, site 7 (cell block): Numerous non-necrotizing granulomas are noted. Special stains for acid fast bacilli and fungi are negative for organisms; matched controls are appropriate. See comment. K. TBNA, site 10R (cell block): Lymphocytes and a few histiocytes suggestive of granuloma formation are noted. Special stains for acid fast bacilli and fungi are negative for organisms; matched controls are appropriate. See comment. SJ:renetta 06/21/18 COMMENT The specimen is evaluated at the time of procedure by Dr. Benjamin. Immediate Evaluation: A. EBUS, aspiration #1, site 4R: A few lymphocytes and respiratory epithelial cells. Negative for malignant cells. Reported to Dr. Cavanaugh at 1:07 p.m. B. EBUS, aspiration #2, site 4R: Adequate for evaluation. Negative for malignant cells. Reported to Dr. Cavanaugh at 1:07 p.m. C. EBUS, aspiration #3, site 4R: Adequate for evaluation. A few granulomas are noted. Negative for malignant cells. Reported to Dr. Cavanaugh at 1:10 p.m. D. EBUS, aspiration #4, site 7: Adequate for evaluation. Numerous granulomas are noted. Reported to Dr. Cavanaugh at 1:12 p.m. E. EBUS, aspiration #5, site 7: Adequate for evaluation. Negative for malignant cells. Reported to Dr. Cavanaugh. F. EBUS, aspiration #6, site 7: Respiratory epithelial cells and macrophages. Nondiagnostic. Reported to Dr. Cavanaugh at 1:20 p.m. G. EBUS, aspiration #7, site 10R: A few lymphocytes. Negative for malignant cells. Reported to Dr. Cavanaugh at 1:20 p.m. H. EBUS, aspiration #8, site 10R: Adequate for evaluation. Granulomas are noted. Reported to Dr. Cavanaugh at 1:23 p.m. I-K. The flow cytometry studies results from [facility] are reported as follows: the low cell viability hinders accurate interpretation; however, in the viable cell population, the analysis reveals a mixed population of B and T lymphocytes with mostly T cells. No rabago-T cell antigen deletion or B cell light chain restriction is detected. The complete report is viewable in patient's EMR. Case has been reviewed in consultation with Dr. Palacios who concurs with the above diagnosis. IDC:AM CYTOLOGY STUDY Slides are reviewed. CYTOLOGY GROSS A - Received labeled with the patient's name and and designated EBUS FNA, aspiration #1, site 4R. The specimen consists of two smears that are submitted for immediate cytologic evaluation (wet reading). B - Received labeled with the patient's name and and designated EBUS FNA, aspiration #2, site 4R. The specimen consists of two smears that are submitted for immediate cytologic evaluation (wet reading). C - Received labeled with the patient's name and and designated EBUS FNA, aspiration #3, site 4R. The specimen consists of two smears that are submitted for immediate cytologic evaluation (wet reading). D - Received labeled with the patient's name and and designated EBUS FNA, aspiration #4, site 7. The specimen consists of two smears that are submitted for immediate cytologic evaluation (wet reading). E - Received labeled with the patient's name and and designated EBUS FNA, aspiration #5, site 7. The specimen consists of two smears that are submitted for immediate cytologic evaluation (wet reading). F - Received labeled with the patient's name and and designated EBUS FNA, aspiration #6, site 7. The specimen consists of two smears that are submitted for immediate cytologic evaluation (wet reading). G - Received labeled with the patient's name and and designated EBUS FNA, aspiration #7, site 10R. The specimen consists of two smears that are submitted for immediate cytologic evaluation (wet reading). H - Received labeled with the patient's name and and designated EBUS FNA, aspiration #8, site 10R. The specimen consists of two smears that are submitted for immediate cytologic evaluation (wet reading). I - Received in RPMI and labeled with the patient's name and and designated TBNA, site 4R. Submitted for cell block preparation. J - Received in RPMI and labeled with the patient's name and and designated TBNA, site 7. Submitted for cell block preparation. K - Received in RPMI and labeled with the patient's name and and designated TBNA, site 10R. Submitted for cell block preparation. / SJ:rg 06/16/18 TC:5 Note: A Portion of the fluid from specimens I, J & K is mixed and submitted for flow cytometry studies. CPT: 86877 x3, 24354 x3, 88207 x3, 97534 x5 71579 x6
[2018-06-16 11:51] LABS: Prothrombin Time Fingerstick 13.1 SEC (11.9-14.4)
--- NOTE | 2018-06-16 13:40 | OP.ENDO_ITS ---
Patient Name: Nanette Carranza Procedure Date: 06/16/2018 12:22 PM Date of : 1965 Age: 52 Procedure: Bronchoscopy Indications: Mediastinal adenopathy Providers: Adonis Cavanaugh MD Referring MD: Adonis Cavanaugh MD Requesting Physician: Jameson Mendoza MD Medicines: General Anesthesia Complications: No immediate complications Procedure: Pre-Anesthesia Assessment: - [place] Protocol: - Pre-procedure Verification: Prior to the procedure, the patient's identity was verified by full name and date of . The patient's identity was verified on all pertinent medical records, including History and Physical. Also prior to the procedure, a History and Physical was performed, and patient medications, allergies and sensitivities were reviewed. The patient's tolerance of previous anesthesia was reviewed. The risks and benefits of the procedure and the sedation options and risks were discussed with the patient. All questions were answered and informed consent was obtained. - Time-Out: Prior to the start of the procedure, the patient's identification, proposed procedure, accurate signed consent, correctly labeled images and records, and need for prophylactic antibiotics were verified by the physician and the nurse in the procedure room. After I obtained informed consent, the scope was passed under direct vision. Throughout the procedure, the patient's blood pressure, pulse, and oxygen saturations were monitored continuously. The ultrasound bronchoscope was introduced through the mouth, via laryngeal mask airway and advanced to the tracheobronchial tree. The procedure was accomplished without difficulty. The patient tolerated the procedure well. Findings: The laryngeal mask airway is in good position. The vocal cords appear normal. The subglottic space is normal. The trachea is of normal caliber. The nanette is sharp. The tracheobronchial tree was examined to at least the first subsegmental level. Bronchial mucosa and anatomy are normal; there are no endobronchial lesions, and no secretions. The scope was withdrawn and replaced with the EBUS bronchoscope to accomplish the ultrasound examination. Lymph Nodes: An endobronchial ultrasound endoscope was utilized to systematically examine the right lower paratracheal region (level 4R), subcarinal mediastinum (level 7) and right hilar region (level 10R) in order to assist with fine needle aspiration. Lymph node sizing was performed via endobronchial ultrasound. Sampling by transbronchial needle aspiration was also performed using an Olympus EBUS-TBNA 19 gauge needle in the right lower paratracheal region (level 4R), subcarinal mediastinum (level 7) and right hilar region (level 10R) and sent for routine cytology and flow cytometry. - The 4R (lower paratracheal) node was evaluated. Three samples with the needle were obtained. - The 7 (subcarinal) node was evaluated. Three samples with the needle were obtained. - The 10R (hilar) node was evaluated. Two samples were obtained. Lymph Nodes: Rapid On site evaluation: Lymphocytes present, along with granulomas. No malignant cells. Impression: - Mediastinal adenopathy - The airway examination was normal. - Endobronchial ultrasound was performed. - Lymph node sizing and sampling was performed. - LAYO was suggestive of lymphocyes and granulomas. Recommendation: - Await biopsy results. - Follow up with bronchoscopist as previously scheduled. Procedure Code(s): --- Professional --- 97627, Bronchoscopy, rigid or flexible, including fluoroscopic guidance, when performed; with endobronchial ultrasound (EBUS) guided transtracheal and/or transbronchial sampling (eg, aspiration[s]/biopsy[ies]), 3 or more mediastinal and/or hilar lymph node stations or structures Diagnosis Code(s): --- Professional --- R59.0, Localized enlarged lymph nodes R09.89, Other specified symptoms and signs involving the circulatory and respiratory systems CPT copyright 2017 [employer]. All rights reserved. The codes documented in this report are preliminary and upon investigator review may be revised to meet current compliance requirements. DO Adonis Blackwood MD 06/16/2018 1:40:01 PM This report has been signed electronically. Number of Addenda: 0 Note Initiated On: 06/16/2018 12:22 PM
== END 2018-06-16 15:36 | disposition home or self-care (01) ==
LOC: EN 11:23 → AC 11:23
PROVIDERS: Family Provider Internal Medicine; PCP Internal Medicine; Referring Provider Internal Medicine Critical Care Medicine; Visit Provider Internal Medicine Critical Care Medicine
PROC: BB4BZZZ Ultrasonography of Pleura (ICD-10-PCS; CPT 31653; principal; 2018-06-16 12:00)
DX: J84.10 Pulmonary fibrosis, unspecified (principal); R59.0 Localized enlarged lymph nodes; R09.89 Other specified symptoms and signs involving the circulatory and respiratory systems; I10 Essential (primary) hypertension; F41.9 Anxiety disorder, unspecified; G62.9 Polyneuropathy, unspecified; Z86.711 Personal history of pulmonary embolism; Z87.891 Personal history of nicotine dependence
CPT/HCPCS: 31653; 36416; 85610; 88108; 88161; 88305; 88312; 88313; J7120; J2405

== ENCOUNTER → 2018-06-23 11:53 | Outpatient (CLI) | payer OTHER, SELFPAY ==
[2018-06-23 09:07] VITALS: BMI 36.4
[2018-06-26 14:07] LABS: Angiotensin Convert Enzyme 41 U/L (14-82)
== END ==
PROVIDERS: Family Provider Internal Medicine; PCP Internal Medicine; Referring Provider Internal Medicine Critical Care Medicine; Visit Provider Internal Medicine Critical Care Medicine
DX: J84.10 Pulmonary fibrosis, unspecified (principal)
CPT/HCPCS: 36415; 82164; 82330

== ENCOUNTER → 2018-07-04 07:51 | Outpatient (CLI) | payer OTHER, SELFPAY ==
[2018-06-23 09:07] VITALS: BMI 36.4
--- NOTE | 2018-07-04 13:55 | PFTCOMP_ITS ---
COMPLETE PULMONARY FUNCTION TEST INTERPRETATION Brief HPI: Patient is a 52 year old female, currently under the care of Dr. Cavanaugh, who presents to [facility] for complete pulmonary function tests secondary to diagnosis of pulmonary fibrosis. Respiratory therapist reports good effort and reproducible results. Interpretation: Forced expiration spirometry shows no large airways obstructive ventilatory defect with an FEV1 of 83% predicted. There is no significant bronchodilator response by strict ATS criteria. Spirograms are of good quality and plateau normally. The respiratory flow volume loop shows a normal pattern. Lung volumes by body plethysmography show a normal total lung capacity at 4.49 L, 87% predicted. All other lung volumes are within normal limits. Diffusion capacity by carbon monoxide is normal at 85% predicted. The airway resistance is normal. No previous pulmonary function tests were available for review. Impression: These pulmonary function tests are grossly within normal limits. Total lung capacity and DLCO is at the lower limit of normal.
== END ==
PROVIDERS: Family Provider Internal Medicine; PCP Internal Medicine; Referring Provider Internal Medicine Critical Care Medicine; Visit Provider Internal Medicine Critical Care Medicine
DX: J84.10 Pulmonary fibrosis, unspecified (principal)
CPT/HCPCS: 94060; 94726; 94729

== ENCOUNTER → 2018-07-10 14:53 | Outpatient (CLI) | payer OTHER, SELFPAY ==
[2018-05-02 14:58] VITALS: BMI 36.4
[2018-06-23 09:07] VITALS: BMI 36.4
--- NOTE | 2018-07-10 14:57 | ECHOD_ITS ---
Reason For Study: DYSPNEA/SOB Procedure This was a 2D Doppler, Color Flow transthoracic echocardiogram. The study was technically difficult. Due to body habitus. Exam performed in department. Left Ventricle Normal LV size. Left ventricular systolic function is normal. The estimated ejection fraction is 65 %. Transmitral doppler flow suggestive of impaired relaxation of left ventricle. No regional wall motion abnormalities noted. Right Ventricle Normal RV size. Normal systolic function. Atria Normal left atrium. Normal right atrium. No doppler evidence for ASD. Mitral Valve There is no mitral annular calcification. Normal mitral valve. Trivial mitral valve insufficiency. Tricuspid Valve Normal tricuspid valve. Trivial tricuspid valve insufficiency. Unable to estimate RV systolic pressure/pulmonary artery pressure due to technically difficult study. Aortic Valve The aortic valve is not well visualized. Pulmonic Valve Normal pulmonic valve. Trivial pulmonic valve insufficiency. Great Vessels Normal sized aortic root. Pericardium/Pleural No pericardial effusion. MMode/2D Measurements & Calculations LVIDd: 4.5 cm IVSd: 1.0 cm Ao root diam: 3.1 cm LVIDs: 2.7 cm LVPWd: 1.0 cm RVDd: 2.9 cm FS: 40.1 % LAV(MOD-bp): 47.3 ml LA A4 area: 16.5 cm2 LA dimension(2D): 3.7 cm LAV(MOD-bp) Indexed: 23.6 ml/m2 LAV(MOD-sp2): 43.2 ml LAV(MOD-sp4): 47.2 ml RA A4 area: 13.3 cm2 Time Measurements MV dec time: 0.21 sec Doppler Measurements & Calculations MV E max howard: 74.4 cm/sec Lat Peak E' Howard: 8.3 cm/sec Med Peak E' Howard: 9.6 cm/sec MV A max howard: 86.5 cm/sec E/E' lat: 9.0 E/E' med: 7.7 MV E/A: 0.86 Ao V2 max: 120.1 cm/sec LV V1 max: 112.0 cm/sec PA V2 max: 66.5 cm/sec Ao max P.8 mmHg LV V1 max P.0 mmHg Interpretation Summary The study was technically difficult. Left ventricular systolic function is normal. The estimated ejection fraction is 65 %. Trivial mitral valve insufficiency. Trivial tricuspid valve insufficiency. Trivial pulmonic valve insufficiency. Unable to estimate RV systolic pressure/pulmonary artery pressure due to technically difficult study. Transmitral doppler flow suggestive of impaired relaxation of left ventricle Ordering Physician: Adonis Cavanaugh D.O. Referring Physician: Jameson Mendoza Performed By: Felecia Xiong, MARIBEL, RVT
== END ==
PROVIDERS: Family Provider Internal Medicine; PCP Internal Medicine; Referring Provider Internal Medicine Critical Care Medicine; Visit Provider Internal Medicine Critical Care Medicine
DX: J84.10 Pulmonary fibrosis, unspecified (principal); R06.02 Shortness of breath
CPT/HCPCS: 93306

== ENCOUNTER → 2018-07-19 | Outpatient (CLI) | payer OTHER, SELFPAY ==
[2018-07-18 16:17] VITALS: BMI 36.4
--- NOTE | 2018-07-19 08:25 | RAD_ITS ---
STUDY: X-RAY - LEFT SHOULDER REASON FOR EXAM: Female, 52 years old. Left-sided shoulder pain. TECHNIQUE: 4 view(s) of the shoulder. COMPARISON: Prior comparable comparison studies are not available for review at this time. FINDINGS: Normal glenohumeral articulation. Normal acromioclavicular joint. Normal acromion. Normal humeral head and visualized proximal humerus. The soft tissue structures are unremarkable. A curvilinear metallic opacity is visible on the transaxillary view probably representing something outside the patient and patient's clothing. Normal visualized pulmonary apex. RAD/Shoulder min 2 Views IMPRESSION: No radiographic evidence of acute fracture. Electronically Signed: Mary Atkinson MD at 19:15 EDT , Service support ,
== END | disposition home or self-care (01) ==
LOC: HPRAD 08:23
PROVIDERS: Family Provider Internal Medicine; PCP Internal Medicine; Referring Provider Orthopaedic Surgery; Visit Provider Orthopaedic Surgery
DX: M25.512 Pain in left shoulder (principal)
CPT/HCPCS: 73030

== ENCOUNTER → 2018-07-21 11:02 | Outpatient (CLI) | payer OTHER, SELFPAY ==
[2018-07-21 07:43] VITALS: BMI 36.6
[2018-07-21 11:53] LABS: Absolute Lymphocyte Count 1.64 X10^3/ul (0.83-4.51); Absolute Neutrophil Count 3.8 X10^3/uL (2.0-7.7); Basophil# 0.03 X10^3/uL; Basophil% 0.5 % (0-1); Eosinophil# 0.17 X10^3/uL; Eosinophils% 2.8 % (0-5); Hematocrit 39.5 % (37-47); Lymphocyte # 1.64 X10^3/ul (4.0); Lymphocyte % 26.5 % (19-41); Mean Corp Hgb Conc 32.9 g/gl (32-36); Mean Corpuscular Hgb 28.5 pg (27.0-32.0); Mean Corpuscular Volume 86.6 fL (81-99); Mean Platelet Vol. 9.6 fl (6.2-12.0); Monocyte# 0.55 X10^3/uL; Monocyte% 8.9 % (0-10); Neutrophil # 3.78 X10^3/uL (2.7-7.7); Neutrophil % 61.1 % (47-70); Platelet Count 240 K/mm3 (150-450); RBC Distribution Width CV 12.6 % (11.6-14.6); RBC Distribution Width SD 40.1 fl (35.1-43.9); Red Blood Count 4.56 M/mm3 (4.2-5.4); White Blood Count 6.2 K/mm3 (4.4-11.0)
[2018-07-21 11:54] LABS: POSITIVE COUNT NO; POSITIVE DIFFERENTIAL NO; POSITIVE MORPHOLOGY NO
[2018-07-21 12:08] LABS: AST(SGOT) 23 U/L (15-37); Alanine Aminotransfer ALT/SGPT 26 U/L (13-56); Albumin, Serum 3.5 g/dL (3.2-5.0); Alkaline Phosphatase 88 U/L (45-117); Anion Gap 5 (5-15); BUN 17 mg/dL (7-18); BUN/Creat Ratio 23.2 RATIO (10-20); Bilirubin, Direct 0.06 mg/dL (0.00-0.30); Calcium,Total 8.8 mg/dL (8.5-10.1); Chloride 105 mmol/L (98-107); Creatinine, Serum 0.73 mg/dL (0.55-1.02); EST Glomerular Filtration Rate 89 mL/min (>60); Est Glom Filt Rate - Afr Amer 107 mL/min (>60); Glucose 96 mg/dL (74-106); Potassium 3.9 mmol/L (3.5-5.1); Protein, Total 7.5 g/dL (6.4-8.2); Sodium Level 140 mmol/L (136-145)
[2018-07-22 03:06] LABS: HEPATITIS B SURFACE AG Negative (Negative); Hepatitis A IgM Antibody Negative (Negative); Hepatitis B Core AB IgM Negative (Negative)
[2018-07-22 08:45] LABS: Hep C Antibodies <0.1 s/co ratio (0.0-0.9)
== END ==
PROVIDERS: Family Provider Internal Medicine; PCP Internal Medicine; Referring Provider Internal Medicine Critical Care Medicine; Visit Provider Internal Medicine Critical Care Medicine
DX: J84.10 Pulmonary fibrosis, unspecified (principal)
CPT/HCPCS: 36415; 80048; 80074; 80076; 85025

== ENCOUNTER → 2018-08-03 15:29 | Outpatient (CLI) | payer OTHER, SELFPAY ==
[2018-07-18 16:17] VITALS: BMI 36.4
[2018-07-31 09:04] VITALS: BMI 36.4
--- NOTE | 2018-08-03 15:33 | MRI_ITS ---
STUDY: MRI BRAIN WITH AND WITHOUT CONTRAST REASON FOR EXAM: Female, 52 years old. MS and sarcoidosis TECHNIQUE: Standardized multiplanar fat and water weighted pulse sequences were obtained. 20 IV Dotarem was administered for the contrast portion of the examination. COMPARISON: 11/28/2013 FINDINGS: Normal size of the ventricles and extra-axial spaces for the patient's age. Several faint T2 hyperintense foci are present in the white matter of the cerebral hemispheres and in the superior left cerebellum. These are approximately 5 in number. The largest is in the right morocho radiata and is unchanged. The others are punctate and more conspicuous than on previous study, seen in the left insula, high left frontal lobe, left morocho radiata, and left superior cerebellum. None are associated with restricted diffusion or abnormal enhancement. Normal bilateral basal ganglia. Normal thalami. There is no extra-axial fluid accumulation. Normal flow voids within the major intracranial circulation suggesting patency by spin echo criteria. Normal venous enhancement. There is no enhancing intra-axial or extra-axial abnormality. Normal sella turcica, pituitary gland, infundibular stalk, optic chiasm and hypothalamus. Normal tectal plate and pineal gland. Normal midbrain, chel and medulla. Normal basal cisterns. Normal bilateral temporal bones. Normal bilateral internal auditory canals. No demonstrated orbital abnormality, within the constraints of a routine brain study. Right sphenoid sinus disease. Normal calvarium and skull base. Normal visualized soft tissue structures. Normal visualized upper cervical spine. MRI/Brain W/WO Contrast IMPRESSION: Overall interval progression of nonspecific white matter disease without associated enhancement or restricted diffusion. Differential includes progressing microangiopathic change, quiescent demyelinating disease, sequelae of hypertension, and other entities. Electronically Signed: Uriel Galvez MD at 19:03 EDT Tel , Service support ,
== END ==
PROVIDERS: Family Provider Internal Medicine; PCP Internal Medicine; Referring Provider Psychiatry & Neurology Neurology; Visit Provider Psychiatry & Neurology Neurology
DX: R94.02 Abnormal brain scan (principal)
CPT/HCPCS: 70553; A9575

== ENCOUNTER → 2018-09-08 12:35 | Outpatient (CLI) | payer OTHER, SELFPAY ==
[2018-08-29 08:18] VITALS: BMI 36.4
[2018-09-08 13:40] LABS: Absolute Lymphocyte Count 1.94 X10^3/ul (0.83-4.51); Absolute Neutrophil Count 3.5 X10^3/uL (2.0-7.7); Basophil# 0.03 X10^3/uL; Basophil% 0.5 % (0-1); Eosinophil# 0.12 X10^3/uL; Hematocrit 39.4 % (37-47); Hemoglobin 13.2 g/dl (12.0-15.0); Lymphocyte # 1.94 X10^3/ul (4.0); Lymphocyte % 32.7 % (19-41); Mean Corp Hgb Conc 33.5 g/gl (32-36); Mean Corpuscular Hgb 28.8 pg (27.0-32.0); Monocyte# 0.33 X10^3/uL; Monocyte% 5.6 % (0-10); Platelet Count 253 K/mm3 (150-450); RBC Distribution Width CV 12.8 % (11.6-14.6); Red Blood Count 4.58 M/mm3 (4.2-5.4); White Blood Count 5.9 K/mm3 (4.4-11.0)
[2018-09-08 13:54] LABS: POSITIVE COUNT NO; POSITIVE DIFFERENTIAL NO; POSITIVE MORPHOLOGY NO
[2018-09-08 13:57] LABS: ALB/GLOB Ratio 0.8 RATIO (0.9-2.4); AST(SGOT) 16 U/L (15-37); Alanine Aminotransfer ALT/SGPT 20 U/L (13-56); Albumin, Serum 3.2 g/dL (3.2-5.0); Alkaline Phosphatase 77 U/L (45-117); Anion Gap 8 (5-15); BUN 15 mg/dL (7-18); BUN/Creat Ratio 19.2 RATIO (10-20); Calcium,Total 8.6 mg/dL (8.5-10.1); Chloride 102 mmol/L (98-107); Creatinine, Serum 0.78 mg/dL (0.55-1.02); EST Glomerular Filtration Rate 82 mL/min (>60); Est Glom Filt Rate - Afr Amer 100 mL/min (>60); Glucose 138 mg/dL (74-106); Potassium 3.5 mmol/L (3.5-5.1); Protein, Total 7.2 g/dL (6.4-8.2); Sodium Level 139 mmol/L (136-145)
[2018-09-08 14:00] LABS: AST(SGOT) 15 U/L (15-37); Alanine Aminotransfer ALT/SGPT 22 U/L (13-56); Albumin, Serum 3.3 g/dL (3.2-5.0); Alkaline Phosphatase 76 U/L (45-117); Bilirubin, Direct 0.08 mg/dL (0.00-0.30); Globulin 3.8 g/dL (2.2-4.2); Protein, Total 7.1 g/dL (6.4-8.2)
== END ==
PROVIDERS: Family Provider Internal Medicine; PCP Internal Medicine; Referring Provider Internal Medicine Critical Care Medicine; Visit Provider Internal Medicine Critical Care Medicine
DX: J84.10 Pulmonary fibrosis, unspecified (principal); I10 Essential (primary) hypertension; Z51.81 Encounter for therapeutic drug level monitoring
CPT/HCPCS: 36415; 80053; 80076; 85025

== ENCOUNTER 2018-09-20 17:28 | Outpatient (RCR) | payer SELFPAY ==
[2018-09-13 11:28] VITALS: BMI 36.4
--- NOTE | 2018-10-30 08:14 | HP.PT.NRP ---
HP - Discharge Summary (1) - Patient Information KENAN ESPINOSA was seen in my office for initial evaluation on 09/20/18. The following Plan of Care was established for this patient: This patient was last seen in our office 09/20/18. Pertinent comments regarding their Physical therapy will appear below: Pt. has not been seen since her initial evaluation and will be DC from DN at this point inm time. At this point I will be discontinuing this patient from physical therapy. I would be happy to see this patient again in the future if found appropriate by the physician. Thank you! ANALILIA DonohueT
== END 2018-09-20 19:00 | disposition home or self-care (01) ==
LOC: PT 17:28
PROVIDERS: Family Provider Internal Medicine; PCP Internal Medicine
DX: R69 Illness, unspecified (principal)

== ENCOUNTER → 2018-10-10 14:28 | Outpatient (CLI) | payer OTHER, SELFPAY ==
[2018-10-10 14:11] VITALS: BMI 36.4
--- NOTE | 2018-10-10 14:30 | RAD_ITS ---
STUDY: X-RAY - CERVICAL SPINE REASON FOR EXAM: Female, 53 years old. Neck pain and headache TECHNIQUE: 4 view(s) of the cervical spine were obtained. COMPARISON: 2015 FINDINGS: Normal anterior atlantoaxial articulation. Normal odontoid process. There is straightening of the normal cervical lordosis. Normal vertebral bodies and endplates. Mild disc space narrowing throughout the C-spine. No evidence of instability on the flexion or extension views The soft tissue structures are unremarkable. RAD/Cerv Spine 4 or 5 Views IMPRESSION: Degenerative changes, no acute findings Electronically Signed: Pedro Calle MD at 15:18 EDT , Service support ,
== END ==
PROVIDERS: Family Provider Internal Medicine; PCP Internal Medicine; Referring Provider Orthopaedic Surgery; Visit Provider Orthopaedic Surgery
DX: M79.602 Pain in left arm (principal)
CPT/HCPCS: 72050

== ENCOUNTER → 2018-10-24 15:25 | Outpatient (CLI) | payer OTHER, SELFPAY ==
[2018-10-10 14:11] VITALS: BMI 36.4
--- NOTE | 2018-10-24 15:26 | MRI_ITS ---
HISTORY:PNeck Pain INTO L arm PNeck Pain INTO L arm TECHNIQUE: Routine MRI of the cervical spine was performed. IV Contrast dosage and agent: COMPARISON: None FINDINGS: # of images incl. paperwork: 247 The visualized portion posterior fossa appears within normal limits VERTEBRAE: Vertebral body heights are maintained VERTEBRAL ALIGNMENT: There is straightening of the normal cervical lordosis which was present on the prior study No spondylolisthesis. CORD: No change when compared prior study. No areas of abnormal signal NECK SOFT TISSUES: No prevertebral soft tissue swelling. There is no cervical adenopathy. C2/C3: There is a minimal annular bulge effacing the ventral thecal sac similar to prior study. No central canal stenosis. No significant neuroforaminal narrowing C3/C4: Osteophyte disc complex similar to prior study. This is most marked in the right central position. This does efface the ventral thecal sac. No canal stenosis. No significant neural foraminal narrowing C4/C5: Diffuse annular bulge effacing the ventral thecal sac but no canal stenosis. No significant neuroforaminal narrowing C5/C6: Osteophyte disc complex effacing the ventral thecal sac. This is asymmetric to the right. There is a left central/foraminal disc protrusion which was present on the prior study. This also effaces the ventral thecal sac. The canal is at the lower limits of normal. There is mild left neural foraminal narrowing similar to prior study C6/C7: Mild annular bulge effacing the ventral thecal sac. No canal stenosis. No significant neuroforaminal narrowing MRI/Spine Cervical (Routine) IMPRESSION: Less change when compared to prior study Straightening the normal cervical lordosis Diffuse annular bulge at C2-3 C4-5 and C6-7 Osteophyte disc complex at C3-4 and C5-6 At C5-6 there is a left central/foraminal disc protrusion unchanged from prior study. The canals at the lower limits of normal at this level. at 1717 Reported and signed by: Chely Brown DO Electronically Signed: Chely Brown DO at 17:16 EDT Tel , Service support ,
== END ==
PROVIDERS: Family Provider Internal Medicine; PCP Internal Medicine; Referring Provider Orthopaedic Surgery; Visit Provider Orthopaedic Surgery
DX: M54.12 Radiculopathy, cervical region (principal)
CPT/HCPCS: 72141

== ENCOUNTER 2018-11-08 15:00 | Outpatient (RCR) | payer OTHER, SELFPAY ==
[2018-10-10 14:11] VITALS: BMI 36.4
[2018-10-26 15:45] VITALS: BMI 36.4
--- NOTE | 2018-11-01 12:06 | HP.PTEVAL ---
Patient's Visit Information KENAN ESPINOSA is a 53 year old F referred to Physical Therapy by Sangeetha Avery MD with a diagnosis of cervical radiculopathy. Date of Evaluation: 10/30/18 Physical Therapist: Deuce Aquino DPT - Visit Plan Frequency: 2x /Week Duration: 4-6 Weeks Plan: Start with mechanical traction, add to home unit if having positive results. Add in stretching/STM. Once symptoms have started to reduce add in postural stability exercises. - Subjective Findings: Pt. is here today for her initial evaluation with diagnosis of cervical radiculopathy. Pt. reports having pain for ~6 months now and wa having pain into her L arm, mostly thumb and index fingers. Pt. reports over the past week her N/T has subsided, but is still having some symptoms in her shoulder and neck. Pt. reports having 3/10 pain currently. Increased pain with porlonged sitting, poor posture, sitting at computer. Decreased pain in suping lying. Pt. reports never having no pain currently. Pt. did have MRI which should no change in symptoms since last MRI ~2 years ago. Pt. is hopeful to reduce symptoms in order to get back to all recreational and work activities without limitations. - Pain cervical spine Pain Intensity (Out of 10): 2 Pain Intensity Range: 0, 4 L shoulder Pain Intensity (Out of 10): 2 Pain Intensity Range: 0, 4 - Objective POSTURE: Pt. has slight FH posture. Rounded shoulders, and icnreased kyphosis at C/T junction. PALPATION: Pt. has increased tenderness as C4-C7 spinous processes. Pt. has mild increase in mid trap/upper trap with palpation. NEURO: normal throughout bilateral UEs. Pt. has normal DTR bilaterally. ROM: cervical spine: flexion nil loss NE, ext min/mod loss increase NW (stiffness), rotation R nil loss NE, rotation L nil loss NE, SB R min loss mild increase NW, SB L min loss mild increase NW. Pt. has normal B shoulder ROM. MMT: pt. has normal strength through bilateral shoulders. Pt. has 5/5 cervical isometrics. Pt. 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 L- 29#, 31#, 26#. - Special Tests C/S Radiculapathy - Left Upper limb tension test: Negative C/S Radiculapathy - Right Upper limb tension test: Negative C/S Radiculapathy - Left Spurlings: Positive C/S Radiculapathy - Right Spurlings: Negative C/S Radiculapathy - Left Cervical distraction: Positive C/S Radiculapathy - Right Cervical distraction: Negative C/S Radiculapathy - Left Relief test: Negative C/S Radiculapathy - Right Relief test: Negative C/S Radiculapathy - Valsalva: Negative Sharp Jade: Negative Vertebral Artery Test: Negative Alar Ligament Test: Negative Cervical Sitting: Protrusion - Mechanical Response: No effect Cervical Sitting: Protrusion - Symptoms During Testing: No effect Cervical Sitting: Protrusion - Symptoms After Testing: No effect Cervical Sitting: Retraction - Mechanical Response: No effect Cervical Sitting: Retraction - Symptoms During Testing: Decreases Cervical Sitting: Retraction - Symptoms After Testing: No better - Goals Goal 1:: Pt. to be I with HEP. Goal Time Frame: 4-6 Weeks Goal 2:: Pt. to have no distal LUE symptoms with all work and recreational activities. Goal Time Frame: 4-6 Weeks Goal 3:: Pt. to sleep without increase in symptoms. Goal Time Frame: 4-6 Weeks Goal 4:: Pt. to demonstrate improved cervical/thoracic posture throughout therapy session. Goal Time Frame: 4-6 Weeks Goal 5:: Pt. to has increased thoracic postural strength by 1/2 grade allowing for increased tolerance to proper posture. - Rehabilitation Potential Physical Therapy Diagnosis: Pt. has signs and symptoms of cervical radiculopathy down her LUE. Pt's has had some improvement in her LUE symptoms since having a massage. Pt. would benefit from PT to trial traction, postural stability and strenghtening exercises. Rehabilitation Potential: Good - Anticipated Interventions Patient/Client Instruction: Educate patient on: Condition, Plan of Care, Risk Factors, Benefits of Fitness Program For the Purpose of:: To facilitate caregiver knowledge, To improve self management, To prevent re-injury, To improve ability to perform tasks related to life management, To improve tolerance to ADL's Therapeutic Exercise to Include: Strength training, Power training, Body mechanics, Postural training, Flexibilty training For the Purpose of:: To decrease pain, To increase ROM, To improve nutrient delivery to tissue, To increase oxygenation perfusion, To improve muscle performance and motor function, To improve health of tissue, To decrease soft tissue restriction, To increase flexibility/ROM, To improve endurance Manual Therapy Techniques to Include: Mobilization, Passive ROM, Functional dry needling, Soft tissue mobilization For the Purpose of:: To decrease pain, To increase ROM, To improve nutrient delivery to tissue, To increase oxygenation perfusion, To improve muscle performance and motor function TENS: Yes Intermittent cervical traction: Yes For the Purpose of:: To decrease pain, To decrease swelling/inflammation Thank you for the opportunity to evaluate your patient. For Medicare and Medicare HMO plans, please review the plan of care and approve it. It will need to be FAXED BACK to us at [phone] for Medicare purposes. For Medicare only, by signing this I certify the plan of care. Please let me know if there are questions or concerns regarding this plan of care. Physician Signature: Date:
== END 2018-11-08 19:00 | disposition home or self-care (01) ==
LOC: PT 15:00
PROVIDERS: Family Provider Internal Medicine; PCP Internal Medicine; Referring Provider Orthopaedic Surgery; Visit Provider Orthopaedic Surgery
DX: M25.512 Pain in left shoulder (principal); M54.12 Radiculopathy, cervical region
CPT/HCPCS: 97014; 97161; 97530; G0283

== ENCOUNTER 2018-12-13 09:16 | Day surgery (SDC) | payer OTHER, SELFPAY ==
[2018-11-17 10:40] VITALS: BMI 36.4
--- NOTE | 2018-11-17 10:40 | HP_ITS ---
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 Is patient in pain?: No Allergies cephalexin monohydrate [From Keflex] Allergy (Verified 11/17/18 10:38) Other sulfamethoxazole [From Bactrim] Allergy (Verified 11/17/18 10:38) Other trimethoprim [From Bactrim] Allergy (Verified 11/17/18 10:38) Other Medications compression stocking, knee high,regular length,medium See Dose Instructions .ROUTE .MEDSUPPLY #4 ea 05/02/18 [Rx Confirmed 11/17/18] Gabapentin [Neurontin] 300 mg PO QHS 06/13/18 [History Confirmed 11/17/18] alprazolam 0.5 mg tablet 0.5 mg PO DAILY PRN #30 tab 07/13/18 [Rx Confirmed 11/17/18] celecoxib 200 mg capsule 200 mg PO DAILY #30 cap 07/19/18 [Rx Confirmed 11/17/18] hydrochlorothiazide 12.5 mg tablet 12.5 mg PO DAILY #60 tab 08/29/18 [Rx Confirmed 11/17/18] duloxetine 30 mg capsule,delayed release 30 mg PO BID #180 cap 10/26/18 [Rx Confirmed 11/17/18] folic acid 1 mg tablet 1 mg PO DAILY #30 tab 11/07/18 [Rx Confirmed 11/17/18] methotrexate sodium 15 mg tablet 15 mg PO QWEEK #12 tab 11/14/18 [Rx Confirmed 11/17/18] dicyclomine 20 mg tablet 20 mg PO BID #30 tab 11/17/18 [Rx Confirmed 11/17/18] pantoprazole 40 mg tablet,delayed release 40 mg PO DAILY #30 tab 11/17/18 [Rx Confirmed 11/17/18] PFSH Medical History (Updated 09/26/18 @ 19:47 by Jameson Mendoza MD) Mediastinal lymphadenopathy (Chronic) Staph aureus infection (Resolved) Pulmonary embolus (Resolved) Surgical History (Updated 06/14/18 @ 10:47 by Adonis Cavanaugh DO) History of cholecystectomy (Acute) History of hysterectomy (Acute) History of oophorectomy (Acute) Family History (Updated 04/11/18 @ 09:33 by Chyna Sweeney) Grandmother Ovarian cancer Sister Diabetes Type 1 Father Heart disease Grandmother Multiple sclerosis Social History (Updated 11/17/18 @ 10:40 by Luci Yanez MD) Smoking Status: Former smoker how long ago did patient quit smokin second hand exposure: Yes alcohol intake: current alcohol intake frequency: holidays/special occasions only substance use type: does not use what type of physical activity do you participate in: walking HPI HPI HPI: KENAN ESPINOSA, is a 53 F who presents to the office today for HPI HPI Surgical H&P: Yes HPI: KENAN ESPINOSA, is a 53 F who presents to the office today for overdue for screening colonoscopy, change in bowel habits. In 2014 patient did have a tubulovillous adenoma removed during colonoscopy. Patient states that for the last month she has had increased number of bowel movements daily cycle between diarrhea/constipation, mainly loose. Patient does have occasional urgency as well. Patient also states she previously had reflux and was on omeprazole for several years and then she was off for 5 to 6 years but more recently she was put on Celebrex for neuropathy but patient states she been off of it for about 2 weeks and she also has been off the Tagamet that she went back on due to reflux symptoms. Patient denies any reflux symptoms however she does does have some nausea in the morning as well as some tenderness in the epigastric region on palpation. Patient initially thought the nausea could be due to the methotrexate she is on. Patient is never had an EGD. Patient denies any family history of colon cancer. ROS General General: Yes weight change and fatigue; no colon cancer or breast cancer Gastro Gastrointestinal: Yes abdominal pain, Yes nausea or vomiting (No vomiting), Yes diarrhea, Yes constipation, No blood in stool, Yes acid reflux, No hemorrhoids, No ulcers Exam Const General: cooperative, comfortable, no acute distress Resp Effort & Inspection: normal respiratory effort Cardio Rate: regular rate GI Inspection: non-distended Palpation: soft, no guarding, tender Assessment & Plan Problems 1. Tubulovillous adenoma of colon D12.6 2. IBS (irritable bowel syndrome) K58.9 3. Gastroesophageal reflux disease K21.9 Plan Discussed with patient that her change in bowel movements, sound like IBS. Did offer the patient a prescription of Bentyl to see if that helps improve. Also schedule patient for screening colonoscopy as she is overdue with her history of a tubulovillous adenoma. On exam patient also had epigastric pain as well has nausea in the morning even though she states she has no symptoms of reflux since been off the Celebrex and Tagamet. Discussed with patient that I would recommend an EGD due to the epigastric pain and nausea. Also given the patient's a prescription of Protonix 40 mg p.o. daily to see if this improves either the epigastric pain or the nausea. I have discussed the above with the patient. I have offered the patient EGD and colonoscopy for evaluation. I have explained the risks/benefits of the procedure and described the procedure. I have discussed the risks with the patient, including but not limited to: infection, bleeding, perforation of the GI tract requiring emergency surgery, inability to complete the procedure, injury to any internal organs, complications of anesthesia, etc. - the patient understands and agrees to proceed. I have answered all the patient's questions to the patient's satisfaction and the patient has no further questions. The patient has been given instructions for the colon cleansing preparation. 1 day of clears, MiraLAX Dulcolax split prep. Luci Yanez M.D. Pager: [phone] [facility] [address] [place] [address], [address] [place] [address] Office: [phone] Orders Orders: Colonoscopy Today EGD Today Medications New: dicyclomine Take 30 minutes before meals 20 mg PO BID 30 tabs 1RF pantoprazole 40 mg PO DAILY 30 tabs 1RF Plan Detail Goals Decrease pain and spasm Improve ROM Barriers Degenerative changes Follow Up We will schedule colonoscopy. Coding Level of Care Code Off vis,new,level 3 Diagnoses Tubulovillous adenoma of colon D12.6 IBS (irritable bowel syndrome) K58.9 Gastroesophageal reflux disease K21.9 11/17/18 1040 <Electronically signed by Luci Powell am, MD> Date _ Luci Yanez MD I have examined the patient the following changes are noted: Patient states that the Bentyl made her sleepy so she has stopped taking it also she knows she is having headaches every day and when looking up side effects of the Protonix the first thing listed was headache so she did stop taking that she is only been taking the Zantac. Patient states she still has a little bit of tenderness in the epigastric region with palpation. Patient states that the bowel prep went well.
[2018-12-04 14:34] VITALS: BMI 36.4
[2018-12-13] VITALS (7 sets, daily range): BP systolic 99–161; BP diastolic 52–82; PULSE 65–85; RESP 16; TEMP 36.6–36.7; O2SAT 97–100; BMI 35.9
[2018-12-13] MEDS: Lactated Ringers 1,000 ML 100 ML IV (09:52)
--- NOTE | 2018-12-13 10:30 | IMM_PTH ---
PATIENT: KENAN ESPINOSA LOC: EN U#:[id number] AGE/SX: 53/F ROOM: RE12/13/[address]: Dr. Luci Yanez MD : 1965 BED: DIS: 12/13/2018 SPEC #: [id number] RECD: 12/13/18 15:20 STATUS: MARY REQ #: [id number] DALIA: 12/13/18 10:[address]: Luci Yanez DEPT: IMMUNOHISTOCHEMISTRY RECD BY: Jaqui Odonnell ENTERED: 12/13/18 15:21 SP TYPE: IMMUNO OTHR DR: Dr. Jameson Mendoza MD Tissues: A - Stomach, NOS B - Gastric mucous membrane Procedures: H Pylori (initial) P53 (initial) PHYSICIAN & INSTITUTION [place] [address] SPECIMEN INFORMATION: Tissue Source: A - Antrum biopsy, B - Gastroesophageal junction Clinical Info: Screening colonoscopy, nausea, GERD Specimen Number: [id number] A & B CPT code: 19329 x2 METHODOLOGY: Deparaffinized sections of prefer/formalin-fixed tissue or PAP/DQ stained slides are incubated with monoclonal/polyclonal antibodies/oligonucleotide probes. Localization is made via biotin free immunoperoxidase method. Appropriate controls are performed and reacted as expected. Results on target cell population are indicated in the following table: RESULTS: ANTIBODY / CLONE RESULT Block A H Pylori (polyclonal) negative Block B P53 (DO-7) negative These tests were developed and their performance characteristics determined by [facility]. They may not have been cleared or approved by the U.S. Food and Drug Administration. The FDA has determined that such clearance or approval is not necessary. INTERPRETATION: A. Antrum biopsy: Negative for Helicobacter pylori organisms. B. Gastroesophageal junction, biopsy: No evidence of dysplasia. AM:renetta 12/15/18
--- NOTE | 2018-12-13 10:30 | COLBX_PTH ---
PATIENT: KENAN ESPINOSA LOC: EN U#:[id number] AGE/SX: 53/F ROOM: RE12/13/[address]: Dr. Luci Yanez MD : 1965 BED: DIS: 12/13/2018 SPEC #: [id number] RECD: 12/13/18 12:13 STATUS: MARY TAO #: [id number] DALIA: 12/13/18 10:[address]: Luci Yanez DEPT: SURGICAL PATHOLOGY RECD BY: Aurora Cooper ENTERED: 12/13/18 13:55 SP TYPE: COLON BX OTHR DR: Dr. Jameson Mendoza MD Tissues: A - Gastric mucous membrane B - Gastric mucous membrane C - Ileum, NOS Procedures: Special Stain Group II Surgery Specimen Level IV Alcian Blue/PAS (control) HEADER OPERATION: Colonoscopy, EGD ([facility]) PRE-OP DIAGNOSIS: Screening colonoscopy, nausea, GERD TISSUE SUBMITTED: A. Antrum biopsy for H. pylori and histo, B. GE junction, C. Biopsy near ileocecal valve MICROSCOPIC DIAGNOSIS A. Gastric antrum, biopsy: Minimal chronic inflammation. See comment. B. 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 No evidence of dysplasia. Focal changes of reflux. See comment. C. Mucosa near ileocecal valve, biopsy: Colonic mucosa with tubular adenoma. AM:renetta 12/14/18 COMMENT A. The results of immunohistochemistry for Helicobacter pylori will be reported separately ([id number]). B. Immunohistochemistry ([id number]) supports the above diagnosis. Alcian blue/PAS stain with matched control supports the above diagnosis. MICROSCOPIC DESCRIPTION Slides are reviewed. GROSS DESCRIPTION A - Received in fixative is one container labeled with the patient's name and designated antrum biopsy. The specimen consists of two irregular fragments of light burdick soft tissue that in aggregate measure 0.6 x 0.3 x 0.1 cm. The specimen is totally submitted in one cassette. B - Received in fixative is one container labeled with the patient's name and designated GE junction biopsy. The specimen consists of one irregular fragment of light burdick soft tissue that measures 0.3 x 0.3 x 0.1 cm. The specimen is totally submitted in one cassette. C - Received in fixative is one container labeled with the patient's name and designated biopsy near ileocecal valve. The specimen consists of one irregular fragment of light burdick soft tissue that measures 0.4 x 0.3 x 0.1 cm. The specimen is totally submitted in one cassette. / PATRICIA:renetta 12/13/18 TC:5 CPT: 57706 x3, 69449
--- NOTE | 2018-12-13 11:16 | OP.ENDO_ITS ---
12/13/2018 Jameson Mendoza MD [address] [place] [address] [place] [address] Re : Upper GI endoscopy procedure for Nanette Carranza Dear Dr. Mendoza This procedure was performed on Thursday, December 13, 2018. My impressions and recommendations are as follows: Impressions : - Z-line irregular, 40 cm from the incisors. Biopsied. - Erythematous mucosa in the antrum. Biopsied. - Normal examined duodenum. Recommendations : - Await pathology results. - Discharge patient to home. - Resume previous diet. - Continue present medications. - Use Prilosec (omeprazole) 40 mg PO daily. My findings are described in the full procedure note, which is enclosed. If I can be of further assistance, please feel free to contact me at Doctor phone number(s): , Work: . Sincerely, MD Luci Starr MD 12/13/2018 11:15:49 AM This report has been signed electronically.
--- NOTE | 2018-12-13 11:19 | OP.ENDO_ITS ---
12/13/2018 Jameson Mendoza MD [address] [place] [address] Re : Colonoscopy procedure for Nanette Carranza Dear Dr. Mendoza This procedure was performed on Thursday, December 13, 2018. My impressions and recommendations are as follows: Impressions : - One less than 5 mm polyp in the cecum, removed with a cold biopsy forceps. Resected and retrieved. - The examination was otherwise normal on direct and retroflexion views. Recommendations : - Discharge patient to home. - Resume previous diet. - Continue present medications. - Await pathology results. - Repeat colonoscopy in 3 - 5 years for surveillance based on pathology results. My findings are described in the full procedure note, which is enclosed. If I can be of further assistance, please feel free to contact me at Doctor phone number(s): , Work: . Sincerely, MD Luci Starr MD 12/13/2018 11:18:56 AM This report has been signed electronically.
== END 2018-12-13 12:20 | disposition home or self-care (01) ==
LOC: EN 09:16 → AC 09:18
PROVIDERS: Family Provider Internal Medicine; PCP Internal Medicine; Referring Provider Internal Medicine; Visit Provider Surgery
PROC: 0DJD8ZZ Inspection of Lower Intestinal Tract, Via Natural or Artificial Opening Endoscopic (ICD-10-PCS; CPT 45378; principal; 2018-12-13 10:25)
DX: K22.70 Barrett's esophagus without dysplasia (principal); K29.50 Unspecified chronic gastritis without bleeding; K21.9 Gastro-esophageal reflux disease without esophagitis; Z12.11 Encounter for screening for malignant neoplasm of colon; D12.0 Benign neoplasm of cecum; K58.0 Irritable bowel syndrome with diarrhea; Z87.19 Personal history of other diseases of the digestive system; R10.13 Epigastric pain; R11.0 Nausea; I10 Essential (primary) hypertension; D86.1 Sarcoidosis of lymph nodes; G62.9 Polyneuropathy, unspecified; Z79.899 Other long term (current) drug therapy; Z87.891 Personal history of nicotine dependence
CPT/HCPCS: 43239; 45380; 88305; 88313; 88342; J7120; J2405

== ENCOUNTER → 2018-12-15 08:45 | Outpatient (CLI) | payer OTHER, SELFPAY ==
[2018-12-13 09:45] VITALS: BMI 35.9
[2018-12-15 09:47] LABS: Absolute Lymphocyte Count 1.97 X10^3/uL (0.83-4.51); Absolute Neutrophil Count 6.1 X10^3/uL (2.0-7.7); Basophil# 0.04 X10^3/uL; Basophil% 0.4 % (0-1); Eosinophils% 1.1 % (0-5); Hematocrit 38.6 % (37-47); Hemoglobin 12.5 g/dL (12.0-15.0); Lymphocyte # 1.97 X10^3/ul (4.0); Lymphocyte % 21.9 % (19-41); Mean Corp Hgb Conc 32.4 g/dL (32-36); Mean Corpuscular Hgb 29.8 pg (27.0-32.0); Mean Corpuscular Volume 91.9 fL (81-99); Monocyte# 0.81 X10^3/uL; NRBC Flagged by Analyzer 0 % (0-5); Neutrophil # 6.05 X10^3/uL (2.7-7.7); Neutrophil % 67.3 % (47-70); Platelet Count 262 K/mm3 (150-450); RBC Distribution Width CV 12.6 % (11.6-14.6); RBC Distribution Width SD 41.4 fl (35.1-43.9)
[2018-12-15 10:22] LABS: AST(SGOT) 14 U/L (15-37); Alanine Aminotransfer ALT/SGPT 19 U/L (13-56); Albumin, Serum 3.4 g/dL (3.2-5.0); Alkaline Phosphatase 88 U/L (45-117); Anion Gap 6 (5-15); BUN 12 mg/dL (7-18); BUN/Creat Ratio 14.9 RATIO (10-20); Bilirubin, Direct 0.13 mg/dL (0.00-0.30); Calcium,Total 8.9 mg/dL (8.5-10.1); Chloride 104 mmol/L (98-107); Creatinine, Serum 0.81 mg/dL (0.55-1.02); EST Glomerular Filtration Rate 79 mL/min (>60); Est Glom Filt Rate - Afr Amer 96 mL/min (>60); Globulin 4.4 g/dL (2.2-4.2); Glucose 91 mg/dL (74-106); Potassium 3.9 mmol/L (3.5-5.1); Protein, Total 7.8 g/dL (6.4-8.2); Sodium Level 139 mmol/L (136-145)
== END ==
PROVIDERS: Family Provider Internal Medicine; PCP Internal Medicine; Referring Provider Internal Medicine Critical Care Medicine; Visit Provider Internal Medicine Critical Care Medicine
DX: D86.9 Sarcoidosis, unspecified (principal)
CPT/HCPCS: 36415; 80048; 80076; 85025

== ENCOUNTER → 2019-02-12 15:18 | Outpatient (CLI) | payer OTHER, SELFPAY ==
[2019-02-12 14:46] VITALS: BMI 35.9
[2019-02-12 15:53] LABS: Absolute Lymphocyte Count 2.49 X10^3/uL (0.83-4.51); Absolute Neutrophil Count 4.6 X10^3/uL (2.0-7.7); Basophil# 0.03 X10^3/uL; Basophil% 0.4 % (0-1); Eosinophils% 1.3 % (0-5); Hematocrit 38.6 % (37-47); Hemoglobin 12.9 g/dL (12.0-15.0); Lymphocyte # 2.49 X10^3/ul (4.0); Lymphocyte % 32.1 % (19-41); Mean Corp Hgb Conc 33.4 g/dL (32-36); Mean Corpuscular Hgb 30.3 pg (27.0-32.0); Mean Corpuscular Volume 90.6 fL (81-99); Mean Platelet Vol. 9.7 fl (6.2-12.0); Monocyte# 0.52 X10^3/uL; Monocyte% 6.7 % (0-10); NRBC Flagged by Analyzer 0 % (0-5); Neutrophil # 4.59 X10^3/uL (2.7-7.7); Neutrophil % 59.1 % (47-70); Platelet Count 284 K/mm3 (150-450); RBC Distribution Width CV 12.2 % (11.6-14.6); RBC Distribution Width SD 39.8 fl (35.1-43.9); Red Blood Count 4.26 M/mm3 (4.2-5.4); White Blood Count 7.8 K/mm3 (4.4-11.0)
[2019-02-12 16:36] LABS: Follicle Stimulating Hormone 69.8 mIU/mL; Thyroid Stim Hormone (TSH) 1.67 uIU/mL (0.358-3.74)
== END ==
PROVIDERS: Family Provider Internal Medicine; PCP Internal Medicine; Referring Provider Nurse Practitioner Women's Health; Visit Provider Nurse Practitioner Women's Health
DX: R23.2 Flushing (principal)
CPT/HCPCS: 36415; 83001; 84443; 85025

== ENCOUNTER → 2019-05-01 15:17 | Outpatient (CLI) | payer OTHER, SELFPAY ==
[2019-04-10 09:49] VITALS: BMI 37.3
--- NOTE | 2019-05-01 15:17 | RAD_ITS ---
STUDY: X-RAY - CERVICAL SPINE REASON FOR EXAM: Female, 53 years old. FOLLOW UP SURGERY TECHNIQUE: 2 view(s) of the cervical spine were obtained. COMPARISON: 24 October 2018 preoperative FINDINGS: Craniocervical junction and cervical spine are intact and aligned. There is C5-C6 ACDF with expected appearance of hardware. There is disc graft in place. Prevertebral soft tissues are normal and the airway is patent. RAD/Cerv Spine 2 or 3 Views IMPRESSION: Expected appearance of cervical spine and C5-C6 ACDF. Electronically Signed: Ivon Pradhan, at 8:54 EST Tel , Service support ,
== END ==
PROVIDERS: PCP Internal Medicine; Referring Provider Orthopaedic Surgery; Visit Provider Orthopaedic Surgery
DX: Z47.89 Encounter for other orthopedic aftercare (principal)
CPT/HCPCS: 72040

== ENCOUNTER → 2019-05-29 12:30 | Outpatient (CLI) | payer OTHER, SELFPAY ==
[2019-05-29 12:26] VITALS: BMI 37.3
--- NOTE | 2019-05-29 12:31 | RAD_ITS ---
STUDY: X-RAY - CERVICAL SPINE REASON FOR EXAM: Female, 53 years old. PAIN TECHNIQUE: 2 view(s) of the cervical spine were obtained. COMPARISON: 05/01/2019. FINDINGS: There are degenerative changes of the anterior atlantoaxial articulation. Normal odontoid process. There is straightening of the normal cervical lordosis. The patient is status post anterior fusion at C5-C6. There is mild, multi-level endplate spondylosis. Mild multilevel narrowing of the disc space heights. The soft tissue structures are unremarkable. RAD/Cerv Spine 2 or 3 Views IMPRESSION: Postoperative changes as described above with no subluxation or acute fracture. Electronically Signed: Annette Rosario MD at 0:30 EDT , Service support ,
== END ==
PROVIDERS: PCP Internal Medicine; Referring Provider Orthopaedic Surgery; Visit Provider Orthopaedic Surgery
DX: Z98.1 Arthrodesis status (principal)
CPT/HCPCS: 72040

== ENCOUNTER → 2020-11-19 14:48 | Outpatient (CLI) | payer OTHER, SELFPAY ==
[2020-11-21 17:27] LABS: Angiotensin Convert Enzyme 24 U/L (14-82)
== END ==
PROVIDERS: PCP Internal Medicine; Referring Provider Internal Medicine Critical Care Medicine; Visit Provider Internal Medicine Critical Care Medicine
DX: D86.9 Sarcoidosis, unspecified (principal)
CPT/HCPCS: 36415; 82164

== ENCOUNTER → 2020-11-20 08:46 | Outpatient (CLI) | payer OTHER, SELFPAY ==
[2020-11-20 09:24] LABS: Bacteria 0 SEEN /hpf (None Seen); Mucous, Urine 0 SEEN /hpf (<or=2+)
[2020-11-20 12:13] LABS: Absolute Lymphocyte Count 2.01 X10^3/uL (0.83-4.51); Absolute Neutrophil Count 3.8 X10^3/uL (2.0-7.7); Basophil# 0.04 X10^3/uL; Basophil% 0.6 % (0-1); Eosinophil# 0.08 X10^3/uL; Eosinophils% 1.2 % (0-5); Hemoglobin 14.4 g/dL (12.0-15.0); Lymphocyte # 2.01 X10^3/ul (0.83-4.51); Lymphocyte % 31.4 % (19-41); Mean Corp Hgb Conc 32.7 g/dL (32-36); Mean Corpuscular Hgb 28.3 pg (27.0-32.0); Mean Corpuscular Volume 86.4 fL (81-99); Mean Platelet Vol. 10.6 fl (6.2-12.0); Monocyte# 0.51 X10^3/uL; NRBC Flagged by Analyzer 0 % (0-5); Neutrophil # 3.75 X10^3/uL (2.7-7.7); Neutrophil % 58.5 % (47-70); Platelet Count 301 K/mm3 (150-450); RBC Distribution Width CV 12.2 % (11.6-14.6); Red Blood Count 5.09 M/mm3 (4.2-5.4); White Blood Count 6.4 K/mm3 (4.4-11.0)
[2020-11-20 12:14] LABS: Color, Urine Yellow (Yellow); Glucose, Dipstick Normal (Normal); Ketone-Dipstick Negative (Negative); Leukocyte Esterase-Dipstick Negative /ul (Negative); Nitrite-Dipstick Negative (Negative); Occult Blood-Urine 10 /ul (Negative); Protein-Dipstick Negative (Negative); Specific Gravity, Urine 1.015 (1.002-1.030); Urine Bilirubin Dipstick Negative (Negative); Urine Clarity Clear (Clear); Urine Urobilinogen Normal (Normal)
[2020-11-20 12:29] LABS: Red Blood Cells-Urine 0-5 SEEN /hpf (0-5); Squamous Epithelial Cells - UA 0-5 SEEN /hpf (5-10); White Blood Cells 0-5 SEEN /hpf (0-5)
[2020-11-20 12:33] LABS: ALB/GLOB Ratio 0.9 RATIO (0.9-2.4); AST(SGOT) 17 U/L (15-37); Alanine Aminotransfer ALT/SGPT 27 U/L (13-56); Albumin, Serum 3.9 g/dL (3.2-5.0); Alkaline Phosphatase 118 U/L (45-117); Anion Gap 7 (5-15); BUN 12 mg/dL (7-18); BUN/Creat Ratio 14.9 RATIO (10-20); Calcium,Total 9.6 mg/dL (8.5-10.1); Chloride 100 mmol/L (98-107); Cholesterol 232 mg/dL (200); EST Glomerular Filtration Rate 79 mL/min (>60); Est Glom Filt Rate - Afr Amer 96 mL/min (>60); Globulin 4.2 g/dL (2.2-4.2); Glucose 98 mg/dL (74-106); High Density Lipoprotein 43 mg/dL; Potassium 3.7 mmol/L (3.5-5.1); Protein, Total 8.1 g/dL (6.4-8.2); Sodium Level 136 mmol/L (136-145); Triglycerides 175 mg/dL; Very Low Density Lipoprotein 35 mg/dL (5-40)
== END ==
PROVIDERS: PCP Internal Medicine; Referring Provider Physician Assistant; Visit Provider Physician Assistant
DX: I10 Essential (primary) hypertension (principal); Z13.220 Encounter for screening for lipoid disorders; Z13.6 Encounter for screening for cardiovascular disorders
CPT/HCPCS: 36415; 80053; 80061; 81001; 85025

== ENCOUNTER → 2020-11-25 10:28 | Outpatient (CLI) | payer OTHER, SELFPAY ==
[2020-11-25 12:17] LABS: Erythrocyte Sedimentation Rate 45 mm/hr (0-30)
[2020-11-25 12:19] LABS: Hematocrit 41.8 % (37-47); Hemoglobin 13.9 g/dL (12.0-15.0); Mean Corp Hgb Conc 33.3 g/dL (32-36); Mean Corpuscular Hgb 28.3 pg (27.0-32.0); Mean Platelet Vol. 10.2 fl (6.2-12.0); Platelet Count 329 K/mm3 (150-450); RBC Distribution Width SD 36.9 fl (35.1-43.9); Red Blood Count 4.92 M/mm3 (4.2-5.4); White Blood Count 7.1 K/mm3 (4.4-11.0)
[2020-11-25 12:51] LABS: ALB/GLOB Ratio 0.8 RATIO (0.9-2.4); AST(SGOT) 17 U/L (15-37); Alanine Aminotransfer ALT/SGPT 24 U/L (13-56); Albumin, Serum 3.6 g/dL (3.2-5.0); Alkaline Phosphatase 115 U/L (45-117); Anion Gap 8 (5-15); BUN 16 mg/dL (7-18); BUN/Creat Ratio 21.8 RATIO (10-20); Calcium,Total 9.3 mg/dL (8.5-10.1); Chloride 98 mmol/L (98-107); Creatinine, Serum 0.74 mg/dL (0.55-1.02); EST Glomerular Filtration Rate 88 mL/min (>60); Est Glom Filt Rate - Afr Amer 106 mL/min (>60); Globulin 4.7 g/dL (2.2-4.2); Glucose 101 mg/dL (74-106); Potassium 3.5 mmol/L (3.5-5.1); Protein, Total 8.3 g/dL (6.4-8.2); Sodium Level 135 mmol/L (136-145); Thyroid Stim Hormone (TSH) 1.86 uIU/mL (0.358-3.74)
[2020-11-26 14:17] LABS: ANTINUCLEAR ANTIBODIES DIRECT Negative (Negative)
== END ==
PROVIDERS: PCP Internal Medicine; Referring Provider Psychiatry & Neurology Neurology; Visit Provider Psychiatry & Neurology Neurology
DX: D86.9 Sarcoidosis, unspecified (principal)
CPT/HCPCS: 36415; 80053; 84443; 85027; 85652; 86038; 86140; 86225; 86235

== ENCOUNTER → 2020-12-02 07:52 | Outpatient (CLI) | payer OTHER, SELFPAY ==
--- NOTE | 2020-12-02 07:54 | CT_ITS ---
STUDY: CT CHEST WITH CONTRAST REASON FOR EXAM: Female, 55 years old. Sarcoidosis RADIATION DOSAGE (If Supplied By Facility): CTDIvol = ( 23.12 ) mGy, DLP = ( 744.73 ) mGycm TECHNIQUE: Transaxial imaging was performed following intravenous administration of IV 100mL Isovue-300. Multiplanar coronal and sagittal images were reformatted. Individualized dose optimization techniques were used for this CT. COMPARISON: Comparison is made with prior study dated 05/03/2018. FINDINGS: Small benign appearing bilateral axillary lymph nodes. The lungs are normal. There is no demonstrated pleural abnormality. Normal heart and pericardium. There are multiple small lymph nodes within the mediastinum, which are normal in size and morphology most compatible with reactive lymph hyperplasia. The mediastinal lymph nodes have decreased in size as compared to prior study. Normal hilar regions. Normal enhanced pulmonary arteries. Normal aorta arch and descending thoracic aorta. Normal osseous structures. There is no demonstrated abnormality of the visualized upper abdomen. CT/Chest WITH Contrast IMPRESSION: No acute abnormality is seen. Interval decrease in size of the mediastinal lymph nodes. Electronically Signed: Neo Fink MD at 13:22 EDT , Service support ,
== END ==
PROVIDERS: PCP Internal Medicine; Visit Provider Psychiatry & Neurology Neurology
DX: D86.9 Sarcoidosis, unspecified (principal)
CPT/HCPCS: 71260; Q9967

== ENCOUNTER → 2020-12-09 15:32 | Outpatient (CLI) | payer OTHER, SELFPAY ==
--- NOTE | 2020-12-09 15:32 | MRI_ITS ---
STUDY: MRI CERVICAL SPINE WITH AND WITHOUT CONTRAST REASON FOR EXAM: Female, 55 years old. Sarcoidosis TECHNIQUE: Standardized fat and water weighted pulse sequences were obtained in the sagittal and axial following administration of IV 20mL Dotarem. COMPARISON: None FINDINGS: Normal foramen magnum and brainstem-cervical cord junction. Normal craniovertebral junction. Normal anterior atlantoaxial articulation. Normal odontoid process. Normal cervical lordosis. Normal vertebral bodies and posterior osseous elements. C2-3: Normal endplates. Normal disc height, signal and morphology. Normal central canal and intervertebral neural foramina. C3-4: Normal endplates. Normal disc height, signal and minor bulging of the disc with small right paracentral/posterolateral disc protrusion. Mild narrowing of the central canal and impingement upon the ventral surface of the cord... Mild bilateral neuroforaminal encroachment secondary to bony hypertrophy. C4-5: Normal endplates. Normal disc height, signal and mild bulging the disc with small left posterolateral/foraminal disc protrusion.. Normal central canal. Mild left neuroforaminal encroachment. C5-6: Postop change status post anterior fusion. Normal central canal and intervertebral neural foramina. C6-7: Normal endplates. Normal disc height, signal and minor bulging of the disc. Normal central canal and intervertebral neural foramina. C7-T1: Normal endplates. Normal disc height, signal and morphology. Normal central canal and intervertebral neural foramina. Normal cervical cord. Normal visualized soft tissue structures. MRI/Spine Cervical W/WO Contrast IMPRESSION: No acute fracture or other significant bony pathology. Status post anterior fusion C5-6. Mild spinal stenosis at C3-4 and C4-5 secondary to disc disease and bony hypertrophy No focal lesions within the cord or enhancement following contrast administration Findings as above Electronically Signed: Azael Khalil MD at 19:48 EDT , Service support ,
--- NOTE | 2020-12-09 15:32 | MRI_ITS ---
STUDY: MRI BRAIN WITH AND WITHOUT CONTRAST REASON FOR EXAM: Female, 55 years old. Sarcoidossis TECHNIQUE: Standardized multiplanar fat and water weighted pulse sequences were obtained. IV 20mL Dotarem was administered for the contrast portion of the examination. COMPARISON: 02/03/2019 FINDINGS: Normal size of the ventricles and extra-axial spaces for the patient''s age. There are a few scattered nonenhancing white matter lesions in the cerebral hemispheres bilaterally without mass effect or restricted diffusion.. Normal bilateral basal ganglia. Normal thalami. There is no extra-axial fluid accumulation. Normal flow voids within the major intracranial circulation suggesting patency by spin echo criteria. Normal venous enhancement. There is no enhancing intra-axial or extra-axial abnormality. Normal sella turcica, pituitary gland, infundibular stalk, optic chiasm and hypothalamus. Normal tectal plate and pineal gland. Normal midbrain, chel and medulla. Normal cerebellum. Normal basal cisterns. Normal bilateral temporal bones. Normal bilateral internal auditory canals. No demonstrated orbital abnormality, within the constraints of a routine brain study. Mild mucosal thickening in the right ethmoid air cells. Normal calvarium and skull base. Normal visualized soft tissue structures. Normal visualized upper cervical spine. The white matter lesions are stable since previous exam. MRI/Brain W/WO Contrast IMPRESSION: Stable mild nonspecific white matter disease without significant change since previous study. Electronically Signed: Azael Khalil MD at 18:11 EDT , Service support ,
== END ==
PROVIDERS: PCP Internal Medicine; Referring Provider Psychiatry & Neurology Neurology; Visit Provider Psychiatry & Neurology Neurology
DX: M48.02 Spinal stenosis, cervical region (principal); D86.9 Sarcoidosis, unspecified; G43.909 Migraine, unspecified, not intractable, without status migrainosus; Z98.1 Arthrodesis status
CPT/HCPCS: 70553; 72156; A9575

== ENCOUNTER → 2020-12-15 15:27 | Outpatient (CLI) | payer OTHER, SELFPAY ==
--- NOTE | 2020-12-15 15:36 | MRI_ITS ---
STUDY: MRI LUMBAR SPINE WITH AND WITHOUT CONTRAST REASON FOR EXAM: Female, 55 years old. Sarcoidosis TECHNIQUE: Standardized fat and water weighted pulse sequences were obtained in the sagittal and axial planes. IV 20mL Dotarem was administered for the contrast portion of the examination. COMPARISON: 04/26/2018 FINDINGS: T12-L1: Normal endplates. Normal disc height, hydration and morphology. Normal bilateral facet joints. Normal central canal and bilateral lateral recesses. Normal bilateral intervertebral neural foramina. Normal lumbar lordosis. There is no substantial scoliosis. Normal conus medullaris that terminates at the T12/L1. L1-2: Normal endplates. Normal disc height, hydration and morphology. Normal bilateral facet joints. Normal central canal and bilateral lateral recesses. Normal bilateral intervertebral neural foramina. L2-3: Normal endplates. Normal disc height, hydration and morphology. Normal bilateral facet joints. Normal central canal and bilateral lateral recesses. Normal bilateral intervertebral neural foramina. L3-4: Normal endplates. Normal disc height, hydration and morphology. Normal bilateral facet joints. Normal central canal and bilateral lateral recesses. Normal bilateral intervertebral neural foramina. L4-5: Normal endplates. Normal disc height, hydration and morphology. Normal bilateral facet joints. Normal central canal and bilateral lateral recesses. Normal bilateral intervertebral neural foramina. L5-S1: Normal endplates. Normal disc height, hydration and morphology. Normal bilateral facet joints. Normal central canal and bilateral lateral recesses. Normal bilateral intervertebral neural foramina. Normal visualized sacral ala. Moderate friction related edema in the posterior subcutaneous fat. There is no demonstrated abnormal enhancement. MRI/Spine Lumbar W/WO Contrast IMPRESSION: Normal enhanced and unenhanced MR examination of the lumbar spine. Electronically Signed: Philip Jarquin MD at 12:43 EDT Tel , Service support ,
--- NOTE | 2020-12-15 15:36 | MRI_ITS ---
STUDY: MRI THORACIC SPINE WITH AND WITHOUT CONTRAST REASON FOR EXAM: Female, 55 years old. Sarcoidosis TECHNIQUE: IV 20mL DOTAREM was administered for the contrast portion of the examination. COMPARISON: None. FINDINGS: Normal kyphosis of the thoracic spine. There is no substantial scoliosis. T1-2, T2-3, T3-4, T4-5, T5-6, T6-7, T7-8, T8-9, T9-10, T10-11, T11-12: Normal endplates. Normal disc hydration, heights and morphology of the corresponding intervertebral discs. Normal central canal and intervertebral neural foramina at the corresponding levels. There is mild dilatation of the central canal of the mid thoracic spinal cord at the level of T7 and T8 consistent with a short syrinx. Normal conus medullaris that terminates at the L1/L2.. The soft tissue structures are unremarkable. There is no enhancing abnormality. MRI/Spine Thoracic W/WO Contrast IMPRESSION: Short mild syrinx at T7 and T8. No spinal stenosis or cord compression. Electronically Signed: Philip Jarquin MD at 12:39 EDT Tel , Service support ,
== END ==
LOC: MRI 15:27
PROVIDERS: PCP Internal Medicine; Referring Provider Psychiatry & Neurology Neurology; Visit Provider Psychiatry & Neurology Neurology
DX: D86.9 Sarcoidosis, unspecified (principal); R32 Unspecified urinary incontinence
CPT/HCPCS: 72157; 72158; A9575

== ENCOUNTER → 2021-01-07 09:22 | Outpatient (CLI) | payer OTHER, SELFPAY ==
--- NOTE | 2021-01-07 09:24 | EKG12_ITS ---
Test Reason : HTN Blood Pressure : / mmHG Vent. Rate : 077 BPM Atrial Rate : 077 BPM P-R Int : 146 ms QRS Dur : 084 ms QT Int : 402 ms P-R-T Axes : 035 -03 015 degrees QTc Int : 454 ms Normal sinus rhythm Normal ECG Confirmed by DOROTEO GARCIA, GLENN ([id number]), deputy editor in chief SHANIQUA LE ([id number]) on 01/08/2021 7:46:39 AM Referred By: Alisha Chadwick Confirmed By:GLENN SADLER MD
[2021-01-07 15:43] LABS: Erythrocyte Sedimentation Rate 23 mm/hr (0-30)
[2021-01-07 16:11] LABS: CPK Total, Creatine Kinase 93 U/L (26-192)
[2021-01-09 15:08] LABS: Aldolase 4.1 U/L (3.3-10.3)
[2021-01-09 16:00] LABS: Myoglobin, Serum 28 ng/mL (25-58)
== END ==
PROVIDERS: Psychiatry & Neurology Neurology; PCP Internal Medicine; Referring Provider Physician Assistant; Visit Provider Physician Assistant
DX: M79.7 Fibromyalgia (principal); R00.2 Palpitations
CPT/HCPCS: 36415; 82085; 82550; 83874; 85652; 86140; 93005

== ENCOUNTER → 2021-03-03 11:25 | Outpatient (CLI) | payer OTHER, SELFPAY ==
--- NOTE | 2021-03-03 11:27 | US_ITS ---
STUDY: ULTRASOUND OF THE FEMALE PELVIS - COMPLETE REASON FOR EXAM: Female, 55 years old. Bloating LMP: The patient is status post hysterectomy. TECHNIQUE: Transabdominal and Transvaginal TECHNICAL QUALITY: Adequate. COMPARISON: None. FINDINGS: The patient is status post hysterectomy. The patient is status post right oophorectomy. The left ovary is visualized. The left ovary measures 2.4 cm x 1.3 cm x 1.2 cm. There is no left ovarian cyst or ovarian mass. There is no visualized left adnexal mass or complex lesion. There is normal arterial and normal venous vascularity. There is no fluid in the cul-de-sac. The pre void volume of the bladder was 255 ml. US/Pelvic (Non ) IMPRESSION: Status post hysterectomy and right oophorectomy. Electronically Signed: Neo Fink MD at 13:09 EST , Service support ,
--- NOTE | 2021-03-03 11:27 | US_ITS ---
STUDY: ULTRASOUND OF THE FEMALE PELVIS - COMPLETE REASON FOR EXAM: Female, 55 years old. Bloating LMP: The patient is status post hysterectomy. TECHNIQUE: Transabdominal and Transvaginal TECHNICAL QUALITY: Adequate. COMPARISON: None. FINDINGS: The patient is status post hysterectomy. The patient is status post right oophorectomy. The left ovary is visualized. The left ovary measures 2.4 cm x 1.3 cm x 1.2 cm. There is no left ovarian cyst or ovarian mass. There is no visualized left adnexal mass or complex lesion. There is normal arterial and normal venous vascularity. There is no fluid in the cul-de-sac. The pre void volume of the bladder was 255 ml. US/Transvaginal Non- IMPRESSION: Status post hysterectomy and right oophorectomy. Electronically Signed: Neo Fink MD at 13:09 EST , Service support ,
== END ==
PROVIDERS: PCP Internal Medicine; Referring Provider Nurse Practitioner Women's Health; Visit Provider Nurse Practitioner Women's Health
DX: R10.9 Unspecified abdominal pain (principal); R14.0 Abdominal distension (gaseous); R19.4 Change in bowel habit; Z90.710 Acquired absence of both cervix and uterus; Z90.721 Acquired absence of ovaries, unilateral
CPT/HCPCS: 76830; 76856; 93976

== ENCOUNTER → 2021-03-17 13:41 | Outpatient (CLI) | payer OTHER, SELFPAY ==
--- NOTE | 2021-03-17 13:44 | BI_ITS ---
MAMMOGRAPHY - BILATERAL SCREENING 3-D TOMOSYNTHESIS REASON FOR EXAM: Female, 55 years old. screening for breast cancer PERTINENT HISTORY: No significant family history. TECHNIQUE: 2-D mammograms and 3-D Tomosynthesis of the breast (s) were performed. CAD was performed. COMPARISON: 05/24/2018 FINDINGS: The breast composition is heterogeneously dense that can obscure small breast masses. Scattered benign calcifications are seen. No dense spiculated masses or suspicious microcalcifications are identified. No architectural distortion is identified. There is no skin thickening or retraction. There has been no significant change since the prior study. BI/SCRN MAMM (CAD)W/JAELYN BILAT IMPRESSION: No mammographic signs of malignancy. Routine yearly mammograms recommended. ASSESSMENT CATEGORY: BIRADS Category 1: Negative. A letter regarding these results will be sent to the patient by the facility within 30 days. FOLLOW UP RECOMMENDATION: Yearly follow up mammogram recommended. (A) Approximately 10% of breast cancers are not detected by mammography. A normal mammogram should not delay biopsy of a clinically suspicious abnormality. Electronically Signed: Philip Jarquin MD at 15:26 EST Tel , Service support ,
== END ==
PROVIDERS: PCP Internal Medicine; Referring Provider Internal Medicine; Visit Provider Internal Medicine
DX: Z12.31 Encounter for screening mammogram for malignant neoplasm of breast (principal)
CPT/HCPCS: 77063; 77067

== ENCOUNTER 2021-04-07 16:41 | Outpatient (CLI) | payer OTHER, SELFPAY ==
--- NOTE | 2021-04-07 16:43 | RAD_ITS ---
STUDY: X-RAY - RIGHT WRIST REASON FOR EXAM: Female, 55 years old. fell a week ago, pain along the ulna TECHNIQUE: 3 view(s) of the wrist were obtained. COMPARISON: None. FINDINGS: Normal visualized distal radius and ulna. Normal radiocarpal articulation. Normal distal radioulnar articulation. Normal carpal bones. Normal carpal articulations. Normal carpometacarpal articulation of the thumb. Normal second through fifth carpometacarpal articulations. Normal visualized metacarpal bones. The soft tissue structures are unremarkable. There is no demonstrated acute fracture. RAD/Wrist min 3 Views IMPRESSION: Normal x-ray examination of the wrist. Electronically Signed: Christian Shea MD at 17:41 EST , Service support ,
== END 2021-04-07 23:59 | disposition short-term general hospital (02) ==
LOC: MTRAD 16:43
PROVIDERS: PCP Internal Medicine; Referring Provider Physician Assistant Surgical; Visit Provider Physician Assistant Surgical
DX: S66.911A Strain of unspecified muscle, fascia and tendon at wrist and hand level, right hand, initial encounter (principal)
CPT/HCPCS: 73110

== ENCOUNTER 2021-08-31 12:30 | Day surgery (SDC) | payer OTHER, SELFPAY ==
--- NOTE | 2021-08-31 12:48 | H&P.OPEN ---
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 Patient denies any reflux symptoms or heartburn with her omeprazole 40 mg p.o. daily. Patient has bowel movements daily denies any blood. Patient denies any chronic abdominal pain. No family history of colon cancer. [facility] Medical History (Updated 08/31/21 @ 12:[address] Luci Yanez MD) Abscess of right arm Anxiety Brain lesion Chronic neck and back pain Constipation GERD (gastroesophageal reflux disease) High cholesterol History of echocardiogram History of edema History of stress test HTN (hypertension) Incontinence Laceration of left great toe w/o foreign body w/o damage to nail Mediastinal lymphadenopathy Migraine headache Pulmonary embolism Pulmonary embolus Sarcoidosis Shortness of breath on exertion Shoulder pain Staph aureus infection Strain of right wrist Wears glasses Home Medications alprazolam 0.5 mg tablet 0.5 mg PO DAILY PRN #30 tab 11/20/20 [Rx Last Taken Unknown] hydrochlorothiazide 25 mg tablet 25 mg PO DAILY tab 11/20/20 [History Last Taken Unknown] amlodipine 10 mg tablet 10 mg PO DAILY #60 tab 01/06/21 [Rx Last Taken Unknown] omeprazole 40 mg capsule,delayed release 40 mg PO DAILY #30 cap 01/06/21 [Rx Last Taken Unknown] acetaminophen 500 mg oral powder packet 500 mg PO Q6H PRN 08/18/21 [History Last Taken Unknown] mmcmajr-empbojjnrfrkk-gqgnfiyp 250 mg-250 mg-65 mg tablet 1 tab PO ONCE PRN 08/18/21 [History Last Taken Unknown] ibuprofen 200 mg capsule 200 mg PO Q6H PRN 08/18/21 [History Last Taken Unknown] meloxicam 7.5 mg tablet 7.5 mg PO DAILY 08/18/21 [History Last Taken Unknown] Allergy/AdvReac Type Severity Reaction Status Date / Time cephalexin monohydrate Allergy Other Verified 08/18/21 08:55 [From Keflex] sulfamethoxazole Allergy Other Verified 08/18/21 08:55 [From Bactrim] trimethoprim [From Bactrim] Allergy Other Verified 08/18/21 08:55 Family History Grandmother Ovarian cancer Sister Diabetes Type 1 Father Heart disease Grandmother Multiple sclerosis Surgical History (Updated 08/25/21 @ 09:14 by Aurora Grider) History of cholecystectomy History of colonoscopy (~11/2018) History of heart surgery History of hysterectomy History of oophorectomy History of spinal surgery Social History household members: spouse and children number of children: 4 current occupational status: employed current occupation: [employer] Smoking Status: Former smoker Tobacco: How many years used: 2 how long ago did patient quit smokin second hand exposure: Yes alcohol intake: current alcohol intake frequency: holidays/special occasions only substance use type: does not use what type of physical activity do you participate in: walking seatbelt use: always do you feel safe at home: Yes additional social history: [employer] Past Medical/Surgical History Planned Operation Planned Operative Procedure/s: EGD, Colonoscopy S.O.S: No Previous Hospitalizations/Surgeries HX Hospitalizations: No HX of Surgeries: HYSTERECTOMY (UTERUS ONLY) 2009 RANDI 08/30 RT OVARY REMOVED 08/30 COLONOSCOPY 01/02 Any Problems With Anesthesia: No You/Your Family Experience Fever (Hyperthermia) With Anes: No Cholinesterase deficiency: No Cardiovascular Hx Chest Pain within Last 2 months: No Hx of Irregular Heartbeat and/or Afib: No Hx Heart Attack: No Hx Congestive Heart Failure: No Hx Rheumatic Fever: No Hx Hypertension: Yes (per pt, controlled on meds) Hx Internal Defibrillator: No Hx Pacemaker: No Hx Cardiac Catheterization: No Hx Cardiac Surgery/Stents/Etc.: No Hx Stress Test: Yes (ECHO 2012 D/T CP WITH ABEBA MENDOZA) Hx Pain in Legs when Walking/Leg Cramps: No Respiratory Chronic Cough: No HX of Shortness of Breath: No Hoarseness: No Hx Chronic Obstructive Pulmonary Disease (COPD): No Hx Asthma: No Hx Emphysema: No Hx Sleep Apnea: No CPAP: No BIPAP: No Hx Respiratory Tract Infection/Cold (presently): No Do You Snore Loudly (louder than talking or can be heard): No Do You Often Feel Tired/ Fatigued/ Sleepy Dring Daytime?: No Has Anyone Observed You Stop Breathing During Sleep?: No Result (for STOP score): Negative Hx Smoking: No Smoking Status: Former smoker Gastrointestinal Hx Gastroesophageal Reflux: Yes Controlled With Meds: Yes Hx Gastrointestinal Disorders: No Hx Gastrointestinal Bleed: No Hx Ulcer: No Hx Hiatal Hernia: No Difficulty Chewing/Swallowing: No Special diet followed at home: No Hx Unplanned Weight Loss of 20#: No HX Unplanned Weight Gain of 20#: No Neurological Hx Seizures: No HX Syncope/Blackout Spells/Unconsciousness: No Hx Transient Ischemic Attacks (TIA): No Hx Multiple Sclerosis: No (2 BRAIN LESIONS) Hx Parkinson's Disease: No Hx Head/Neck Injury: No Hx Headaches: Yes (2 X PER MONTH) Hx Back Injury/Pain: No Recent Onset of Speech Difficulty: No Restless Legs: No Does patient have nerve stimulator: No Blood Disorder Hx Leukemia: No Bleeding Tendencies: No Hx Deep Vein Thrombosis: Yes (DVT 2012 PULMONARY) Hx High Cholesterol: No Blood Transmitted Disease: No Hx Hepatitis: No Hx Cirrhosis: No Hx Anemia: No Hx Blood Disorders: No Reproduction : No Is Patient Lactating: No Hx Hysterectomy: Yes Hx Tubal Ligation: No Are You Post Menopause: Yes Genitourinary Hx Renal Disease: No Hx Dialysis: No Musculoskeletal Hx Arthritis: No Hx Rheumatoid Arthritis: No Hx Gout: No Recent Onset of an Orthopedic Problem: No Endocrine Hx Diabetes: No Thyroid Disease: No Hx Steroid Therapy: No Psycho/Social Hx Substance Use: No Hx Alcohol Use: No Hx Anxiety: Yes (HX) Hx Depression: No Mental Illness: No Hx Dementia: No Miscellaneous Hx Cancer: No Recent Exposure to Contagious Disease: No Hx of C-Diff: No Any Loose Teeth: No Allergies cephalexin monohydrate [From Keflex] Allergy (Verified 08/18/21 08:55) Other SEVERE ABDOMINAL PAIN UNSURE IF IT WAS FROM KEFLEX OR BACTRIM SINCE THEY WERE TAKEN TOGETHER sulfamethoxazole [From Bactrim] Allergy (Verified 08/18/21 08:55) Other SEVERE ABDOMINAL PAIN UNSURE IF IT WAS FROM KEFLEX OR BACTRIM SINCE THEY WERE TAKEN TOGETHER trimethoprim [From Bactrim] Allergy (Verified 08/18/21 08:55) Other SEVERE ABDOMINAL PAIN UNSURE IF IT WAS FROM KEFLEX OR BACTRIM SINCE THEY WERE TAKEN TOGETHER Discharge Is Pt Admitted From a Fdc, or a Nursing Home: No Who Could Help: friend/family After D/C, Where Do you Plan to Go: Return Home Physical Exam Const alert, oriented x3 and no apparent distress HEENT normocephalic and head/scalp atraumatic Resp normal respiratory effort Cardio regular rate GI soft to palpation and non-tender; Negative for non-distended Palpation: Negative for guarding Extremity no clubbing, cyanosis or edema Neuro CN's II-XII intact bilaterally Psych mental status grossly normal Assessment & Plan Assessment/Plan (1) Carreno's esophagus determined by biopsy: (2) Hx of colonic polyps: Procedure Criteria Type of Procedure Procedure Type: Elective Elective Risks - COVID COVID Risk Discussion: The surgeon/proceduralist and patient have discussed in detail the risk of exposure to and/or potential harm posed by the COVID-19 virus with having a surgery/procedure at this time versus the risk of delaying the surgery/procedure. It is not possible to know either the risk of delaying the surgery or procedure or chance of getting an infection with perfect accuracy, but a joint decision was made between the patient and the surgeon/proceduralist to proceed at this time with the scheduled surgery/procedure as indicated on the consent form. Surgery Risks - Colonoscopy Risks Include but are not Limited To: Risks include but are not limited to: Bleeding, perforation requiring further surgery, inability to complete colonoscopy requiring barium enema.
[2021-08-31 13:01] VITALS: BP 162/99; PULSE 77; RESP 16; TEMP 36.6; O2SAT 100; BMI 40.6
[2021-08-31] MEDS: Lactated Ringers 1,000 ML 15 ML IV (13:08)
--- NOTE | 2021-08-31 13:30 | IMM_PTH ---
PATIENT: KENNA ESPINOSA LOC: EN U#:[id number] AGE/SX: 56/F ROOM: RE08/31/[address]: Dr. Luci Yanez MD : 1965 BED: DIS: 08/31/2021 SPEC #: [id number] RECD: 09/01/21 13:26 STATUS: MARY REQ #: [id number] DALIA: 08/31/21 13:[address]: Luci Yanez DEPT: IMMUNOHISTOCHEMISTRY RECD BY: Jaqui Odonnell ENTERED: 09/01/21 13:27 SP TYPE: IMMUNO OTHR DR: Dr. Jameson Mendoza MD Tissues: A - Stomach, NOS B - Gastric mucous membrane Procedures: H Pylori (initial) P53 (initial) KI-67 (add) PHYSICIAN & INSTITUTION [place] [id number] SPECIMEN INFORMATION: Tissue Source: A ? Pre-pylorus ulcer biopsy, B ? GE junction biopsy Clinical Info: Carreno?s esophagus, history of colonic polyps Specimen Number: [id number] A & B CPT code: 32270 x2, 89663 METHODOLOGY: Deparaffinized sections of prefer/formalin-fixed tissue or PAP/DQ stained slides are incubated with monoclonal/polyclonal antibodies/oligonucleotide probes. Localization is made via biotin free immunoperoxidase method. Appropriate controls are performed and reacted as expected. Results on target cell population are indicated in the following table: RESULTS: ANTIBODY / CLONE RESULT Block A H Pylori (polyclonal) negative Block B P53 (DO-7) negative Ki-67 (30-9) positive, low These tests were developed and their performance characteristics determined by [facility]. They may not have been cleared or approved by the U.S. Food and Drug Administration. The FDA has determined that such clearance or approval is not necessary. The above immunohistochemical/dualISH markers are ordered and reviewed by the Pathologist. INTERPRETATION: A. Pre-pylorus ulcer, biopsy: Negative for Helicobacter pylori organisms. B. Gastroesophageal junction, biopsy: No evidence of dysplasia. AM:renetta 09/04/2021
--- NOTE | 2021-08-31 13:30 | COLBX_PTH ---
PATIENT: KENAN ESPINOSA LOC: EN U#:[id number] AGE/SX: 56/F ROOM: RE08/31/[address]: Dr. Luci Yanez MD : 1965 BED: DIS: 08/31/2021 SPEC #: [id number] RECD: 08/31/21 14:57 STATUS: MARY REAntoinette #: [id number] DALIA: 08/31/21 13:[address]: Luci Yanez DEPT: SURGICAL PATHOLOGY RECD BY: Aurora Cooper ENTERED: 09/01/21 11:59 SP TYPE: COLON BX OTHR DR: Dr. Jameson Mendoza MD Tissues: A - ULCER B - Gastric mucous membrane Procedures: Special Stain Group II Surgery Specimen Level IV Alcian Blue/PAS (control) HEADER OPERATION: [place]oscopy[place] [place] PRE-OP DIAGNOSIS: Carreno?s esophagus, history of colonic polyps TISSUE SUBMITTED: A ? Pre-pylorus ulcer biopsy for histo and H. pylori, B ? Gastroesophageal junction biopsy MICROSCOPIC DIAGNOSIS A. Prepyloric ulcer, biopsy: Chronic gastritis. See comment. B. Gastroesophageal junction, biopsy: Fragments of gastric mucosa with chronic inflammation. Focal goblet cell metaplasia consistent with Carreno?s esophagus. No evidence of dysplasia. See comment. AM:renetta 09/02/2021 COMMENT A. The results of immunohistochemistry for Helicobacter pylori will be reported separately ([id number]). B. Immunohistochemistry ([id number]) for P53 and Ki-67 will be performed and results will be reported separately. MICROSCOPIC DESCRIPTION Slides are reviewed. GROSS DESCRIPTION A - Received in fixative is one container labeled with the patient's name and designated prepyloric biopsy. The specimen consists of one irregular fragment of light burdick soft tissue that measures 0.3 x 0.3 x 0.1 cm. The specimen is totally submitted in one cassette. B - Received in fixative is one container labeled with the patient's name and designated GE junction biopsy. The specimen consists of one irregular fragment of light burdick soft tissue that measures 0.4 x 0.3 x 0.1 cm. The specimen is totally submitted in one cassette. / PATRICIA:renetta 09/01/2021 TC:3 CPT: 25621 x2, 15537
[2021-08-31 14:00] VITALS: BP 121/86; BP 162/99; PULSE 80; RESP 16; TEMP 36.1; O2SAT 97
--- NOTE | 2021-08-31 14:00 | OP.EGD_ITS ---
Patient Name: Nanette Carranza Procedure Date: 08/31/2021 1:04 PM Date of : 1965 Age: 56 Procedure: Upper GI endoscopy Indications: Surveillance procedure, Follow-up of Carreno's esophagus Providers: Luci Yanez MD Referring MD: Jameson Mendoza MD Medicines: Monitored Anesthesia Care Patient Profile: This is a 56 year old female. Complications: No immediate complications. Procedure: Pre-Anesthesia Assessment: - Prior to the procedure, a History and Physical was performed, and patient medications and allergies were reviewed. The patient's tolerance of previous anesthesia was also reviewed. The risks and benefits of the procedure and the sedation options and risks were discussed with the patient. All questions were answered, and informed consent was obtained. Prior Anticoagulants: The patient has taken no previous anticoagulant or antiplatelet agents. ASA Grade Assessment: Per anesthesia. After reviewing the risks and benefits, the patient was deemed in satisfactory condition to undergo the procedure. After obtaining informed consent, the endoscope was passed under direct vision. Throughout the procedure, the patient's blood pressure, pulse, and oxygen saturations were monitored continuously. The Colonoscope was introduced through the mouth, and advanced to the second part of duodenum. The upper GI endoscopy was accomplished without difficulty. The patient tolerated the procedure well. Scope In: 1:25:06 PM Scope Out: 1:34:49 PM Total Procedure Duration Time 0 hours 9 minutes 43 seconds Findings: The Z-line was irregular and was found 40 cm from the incisors. The examined duodenum was normal. One non-bleeding superficial gastric ulcer with no stigmata of bleeding was found in the prepyloric region of the stomach. The lesion was 4 mm in largest dimension. Biopsies were taken with a cold forceps for histology. Biopsies were taken with a cold forceps for Helicobacter pylori cultures. Moderately erythematous mucosa without bleeding was found in the gastric antrum and in the prepyloric region of the stomach. The cardia and gastric fundus were normal on retroflexion. There were esophageal mucosal changes secondary to established short-segment Carreno's disease present at the gastroesophageal junction. The maximum longitudinal extent of these mucosal changes was 1 cm in length. Mucosa was biopsied with a cold forceps for histology. Impression: - Z-line irregular, 40 cm from the incisors. - Normal examined duodenum. - Non-bleeding gastric ulcer with no stigmata of bleeding. Biopsied. - Erythematous mucosa in the antrum and prepyloric region of the stomach. - Esophageal mucosal changes secondary to established short-segment Carreno's disease. Biopsied. Recommendation: - Discharge patient to home. - Resume previous diet. - Use Protonix (pantoprazole) 40 mg PO daily. - Use sucralfate tablets 1 gram PO QID for 2 weeks. - - Limit use of aspirin, ibuprofen, naproxen, or other non-steroidal anti-inflammatory drugs Procedure Code(s): --- Professional --- 14173, PT, Esophagogastroduodenoscopy, flexible, transoral; with biopsy, single or multiple Diagnosis Code(s): --- Professional --- K22.8, Other specified diseases of esophagus K22.70, Carreno's esophagus without dysplasia K25.9, Gastric ulcer, unspecified as acute or chronic, without hemorrhage or perforation K31.89, Other diseases of stomach and duodenum CPT copyright 2017 [employer]. All rights reserved. The codes documented in this report are preliminary and upon supervisor contact and service clerks review may be revised to meet current compliance requirements. MD Luci Starr MD 08/31/2021 2:00:31 PM This report has been signed electronically. Number of Addenda: 0 Note Initiated On: 08/31/2021 1:04 PM
--- NOTE | 2021-08-31 14:01 | OP.CCLET_ITS ---
08/31/2021 Jameson Mendoza MD [address] [place] [address] [place] [address] Re : Upper GI endoscopy procedure for Nanette Carranza Dear Dr. Mendoza This procedure was performed on Tuesday, August 31, 2021. My impressions and recommendations are as follows: Impressions : - Z-line irregular, 40 cm from the incisors. - Normal examined duodenum. - Non-bleeding gastric ulcer with no stigmata of bleeding. Biopsied. - Erythematous mucosa in the antrum and prepyloric region of the stomach. - Esophageal mucosal changes secondary to established short-segment Carreno's disease. Biopsied. Recommendations : - Discharge patient to home. - Resume previous diet. - Use Protonix (pantoprazole) 40 mg PO daily. - Use sucralfate tablets 1 gram PO QID for 2 weeks. - - Limit use of aspirin, ibuprofen, naproxen, or other non-steroidal anti-inflammatory drugs My findings are described in the full procedure note, which is enclosed. If I can be of further assistance, please feel free to contact me at Doctor phone number(s): , Work: . Sincerely, MD Luci Starr MD 08/31/2021 2:00:31 PM This report has been signed electronically.
[2021-08-31 14:05] VITALS: BP 128/82; BP 162/99; PULSE 76; RESP 16; O2SAT 99
--- NOTE | 2021-08-31 14:05 | OP.CCLET_ITS ---
08/31/2021 Jameson Mendoza MD [address] [place] [address] [place] [address] Re : Colonoscopy procedure for Nanette Carranza Dear Dr. Mendoza This procedure was performed on Tuesday, August 31, 2021. My impressions and recommendations are as follows: Impressions : - Hemorrhoids found on perianal exam. - The entire examined colon is normal on direct and retroflexion views. - No specimens collected. Recommendations : - Discharge patient to home. - Resume previous diet. - Continue present medications. - Repeat colonoscopy in 5 years for surveillance. My findings are described in the full procedure note, which is enclosed. If I can be of further assistance, please feel free to contact me at Doctor phone number(s): , Work: . Sincerely, MD Luci Starr MD 08/31/2021 2:04:48 PM This report has been signed electronically.
--- NOTE | 2021-08-31 14:05 | OP.COLON_ITS ---
Patient Name: Nanette Carranza Procedure Date: 08/31/2021 1:34 PM Date of : 1965 Age: 56 Procedure: Colonoscopy Indications: High risk colon cancer surveillance: Personal history of adenoma with villous component, High risk colon cancer surveillance: Personal history of adenoma less than 10 mm in size Providers: Luci Yanez MD Referring MD: Jameson Mendoza MD Medicines: Monitored Anesthesia Care Patient Profile: This is a 56 year old female. Last Colonoscopy: 3 years ago. Complications: No immediate complications. Procedure: Pre-Anesthesia Assessment: - Prior to the procedure, a History and Physical was performed, and patient medications and allergies were reviewed. The patient's tolerance of previous anesthesia was also reviewed. The risks and benefits of the procedure and the sedation options and risks were discussed with the patient. All questions were answered, and informed consent was obtained. Prior Anticoagulants: The patient has taken no previous anticoagulant or antiplatelet agents. ASA Grade Assessment: Per anesthesia. After reviewing the risks and benefits, the patient was deemed in satisfactory condition to undergo the procedure. After I obtained informed consent, the scope was passed under direct vision. Throughout the procedure, the patient's blood pressure, pulse, and oxygen saturations were monitored continuously. The Colonoscope was introduced through the anus and advanced to the cecum, identified by the appendiceal orifice, ileocecal valve and palpation. The colonoscopy was performed without difficulty. The patient tolerated the procedure well. The quality of the bowel preparation was good. Scope In: 1:36:21 PM Scope Withdrawal Time 0 hours 9 minutes 39 seconds Scope Out: 1:51:01 PM Total Procedure Duration Time 0 hours 14 minutes 40 seconds Findings: Hemorrhoids were found on perianal exam. The entire examined colon appeared normal on direct and retroflexion views. Impression: - Hemorrhoids found on perianal exam. - The entire examined colon is normal on direct and retroflexion views. - No specimens collected. Recommendation: - Discharge patient to home. - Resume previous diet. - Continue present medications. - Repeat colonoscopy in 5 years for surveillance. Procedure Code(s): --- Professional --- 95732, PT, Colonoscopy, flexible; diagnostic, including collection of specimen(s) by brushing or washing, when performed (separate procedure) Diagnosis Code(s): --- Professional --- K64.9, Unspecified hemorrhoids Z86.010, Personal history of colonic polyps CPT copyright 2017 [employer]. All rights reserved. The codes documented in this report are preliminary and upon health sciences program coordinator review may be revised to meet current compliance requirements. MD Luci Starr MD 08/31/2021 2:04:48 PM This report has been signed electronically. Number of Addenda: 0 Note Initiated On: 08/31/2021 1:34 PM
[2021-08-31 14:10] VITALS: BP 132/84; BP 162/99; PULSE 85; RESP 16; O2SAT 100
[2021-08-31 14:15] VITALS: BP 138/88; BP 162/99; PULSE 70; RESP 16; TEMP 36.5; O2SAT 100
[2021-08-31 15:10] VITALS: BP 162/99
== END 2021-08-31 15:19 | disposition home or self-care (01) ==
LOC: EN 12:30 → AC 12:33
PROVIDERS: PCP Internal Medicine; Referring Provider Internal Medicine; Visit Provider Surgery
PROC: 0DJD8ZZ Inspection of Lower Intestinal Tract, Via Natural or Artificial Opening Endoscopic (ICD-10-PCS; CPT 45378; principal; 2021-08-31 13:25)
DX: Z12.11 Encounter for screening for malignant neoplasm of colon (principal); K64.9 Unspecified hemorrhoids; K25.9 Gastric ulcer, unspecified as acute or chronic, without hemorrhage or perforation; K22.70 Barrett's esophagus without dysplasia; K29.50 Unspecified chronic gastritis without bleeding; I10 Essential (primary) hypertension; E78.00 Pure hypercholesterolemia, unspecified; M79.7 Fibromyalgia; F41.9 Anxiety disorder, unspecified; Z79.899 Other long term (current) drug therapy; Z86.010 Personal history of colon polyps; Z87.891 Personal history of nicotine dependence
CPT/HCPCS: 45378; 43239; 88305; 88313; 88341; 88342; J7120; J2405

== ENCOUNTER → 2022-05-26 | Outpatient (CLI) | payer OTHER, SELFPAY ==
--- NOTE | 2022-05-26 07:23 | BI_ITS ---
MAMMOGRAPHY - BILATERAL SCREENING REASON FOR EXAM: Female, 56 years old. Routine annual screening examination. PERTINENT HISTORY: Non-contributory. TECHNIQUE: Digital bilateral breast jaelyn (3D mammographic acquisition) in the CC and MLO projections. 2-D mediolateral oblique (MLO) and craniocaudad (CC) views of both breasts were obtained. CAD: Full Field Digital Mammography with Computer Added Detection was performed. COMPARISON: Comparison is made with prior study dated March 17, 2021 and May 24, 2017. FINDINGS: Breast Composition: The breasts are heterogeneously dense, which may obscure small masses. There are no dominant masses or suspicious calcifications. Stable small benign-appearing bilateral axillary lymph nodes. No other significant abnormalities are identified. There has been no significant change since the prior study. BI/SCRN MAMM (CAD)W/JAELYN BILAT IMPRESSION: Stable bilateral screening mammogram. Yearly follow-up mammogram recommended. (A) ASSESSMENT CATEGORY: BIRADS Category 2: Benign. A letter regarding these results will be sent to the patient by the facility within 30 days. Approximately 10% of breast cancers are not detected by mammography. A normal mammogram should not delay biopsy of a clinically suspicious abnormality. [id number] Electronically Signed: Neo Fink MD at 12:33 EST ,
== END | disposition home or self-care (01) ==
LOC: OPBI 07:22
PROVIDERS: PCP Internal Medicine; Visit Provider Registered Nurse
DX: Z12.31 Encounter for screening mammogram for malignant neoplasm of breast (principal)
CPT/HCPCS: 77063; 77067

== ENCOUNTER → 2022-09-08 | Outpatient (CLI) | payer OTHER, SELFPAY ==
[2022-09-08 12:41] LABS: Absolute Lymphocyte Count 2.37 X10^3/uL (0.83-4.51); Absolute Neutrophil Count 3.7 X10^3/uL (2.0-7.7); Basophil# 0.03 X10^3/uL; Basophil% 0.4 % (0-1); Eosinophils% 1.5 % (0-5); Hematocrit 42.6 % (37-47); Hemoglobin 13.7 g/dL (12.0-15.0); Lymphocyte # 2.37 X10^3/ul (0.83-4.51); Lymphocyte % 35.5 % (19-41); Mean Corp Hgb Conc 32.2 g/dL (32-36); Mean Corpuscular Hgb 28.9 pg (27.0-32.0); Mean Corpuscular Volume 89.9 fL (81-99); Mean Platelet Vol. 10.3 fl (6.2-12.0); Monocyte# 0.43 X10^3/uL; Monocyte% 6.4 % (0-10); NRBC Flagged by Analyzer 0 % (0-5); Neutrophil # 3.71 X10^3/uL (2.7-7.7); Neutrophil % 55.8 % (47-70); Platelet Count 282 K/mm3 (150-450); RBC Distribution Width CV 12.2 % (11.6-14.6); RBC Distribution Width SD 40.3 fl (35.1-43.9); Red Blood Count 4.74 M/mm3 (4.2-5.4); White Blood Count 6.7 K/mm3 (4.4-11.0)
[2022-09-08 13:26] LABS: Vitamin B12 308 pg/mL (211-911); Vitamin D,25 Hydroxy 21.6 ng/mL
[2022-09-08 13:40] LABS: ALB/GLOB Ratio 0.9 RATIO (0.9-2.4); AST(SGOT) 15 U/L (15-37); Alanine Aminotransfer ALT/SGPT 17 U/L (13-56); Albumin, Serum 3.5 g/dL (3.2-5.0); Alkaline Phosphatase 89 U/L (45-117); Anion Gap 4 (5-15); BUN 13 mg/dL (7-18); BUN/Creat Ratio 17.6 RATIO (10-20); Calcium,Total 9.1 mg/dL (8.5-10.1); Chloride 107 mmol/L (98-107); Cholesterol 228 mg/dL (200); Creatinine, Serum 0.74 mg/dL (0.55-1.02); EST Glomerular Filtration Rate 87 mL/min (>60); Est Glom Filt Rate - Afr Amer 105 mL/min (>60); Glucose 97 mg/dL (74-106); High Density Lipoprotein 39 mg/dL; Potassium 4.5 mmol/L (3.5-5.1); Protein, Total 7.5 g/dL (6.4-8.2); Sodium Level 139 mmol/L (136-145); Thyroid Stim Hormone (TSH) 2.37 uIU/mL (0.358-3.74); Triglycerides 206 mg/dL; Very Low Density Lipoprotein 41 mg/dL (5-40)
== END | disposition home or self-care (01) ==
LOC: BIMLAB 10:08
PROVIDERS: PCP Internal Medicine; Referring Provider Nurse Practitioner Family; Visit Provider Nurse Practitioner Family
DX: Z00.00 Encounter for general adult medical examination without abnormal findings (principal); I10 Essential (primary) hypertension; F41.9 Anxiety disorder, unspecified; E56.9 Vitamin deficiency, unspecified
CPT/HCPCS: 36415; 80053; 80061; 82306; 82607; 84443; 85025

== ENCOUNTER → 2023-08-31 | Outpatient (CLI) | payer OTHER, SELFPAY ==
[2023-08-31 12:18] LABS: Absolute Lymphocyte Count 2.22 X10^3/uL (0.83-4.51); Absolute Neutrophil Count 2.9 X10^3/uL (2.0-7.7); Basophil# 0.04 X10^3/uL; Basophil% 0.7 % (0-1); Eosinophil# 0.11 X10^3/uL; Eosinophils% 1.9 % (0-5); Hematocrit 41.2 % (37-47); Hemoglobin 13.3 g/dL (12.0-15.0); Lymphocyte # 2.22 X10^3/ul (0.83-4.51); Lymphocyte % 38.9 % (19-41); Mean Corp Hgb Conc 32.3 g/dL (32-36); Mean Corpuscular Hgb 28.4 pg (27.0-32.0); Monocyte# 0.39 X10^3/uL; Monocyte% 6.8 % (0-10); NRBC Flagged by Analyzer 0 % (0-5); Neutrophil # 2.93 X10^3/uL (2.7-7.7); Neutrophil % 51.5 % (47-70); Platelet Count 256 K/mm3 (150-450); RBC Distribution Width CV 12.3 % (11.6-14.6); RBC Distribution Width SD 39.5 fl (35.1-43.9); Red Blood Count 4.68 M/mm3 (4.2-5.4); White Blood Count 5.7 K/mm3 (4.4-11.0)
[2023-08-31 12:58] LABS: ALB/GLOB Ratio 0.9 RATIO (0.9-2.4); AST(SGOT) 19 U/L (15-37); Alanine Aminotransfer ALT/SGPT 19 U/L (13-56); Albumin, Serum 3.5 g/dL (3.2-5.0); Alkaline Phosphatase 88 U/L (45-117); Anion Gap 3 (5-15); BUN 17 mg/dL (7-18); BUN/Creat Ratio 24.4 RATIO (10-20); Chloride 105 mmol/L (98-107); Cholesterol 224 mg/dL (200); EST Glomerular Filtration Rate 92 mL/min (>60); Est Glom Filt Rate - Afr Amer 112 mL/min (>60); Globulin 3.7 g/dL (2.2-4.2); Glucose 91 mg/dL (74-106); High Density Lipoprotein 41 mg/dL; Protein, Total 7.2 g/dL (6.4-8.2); Sodium Level 136 mmol/L (136-145); Thyroid Stim Hormone (TSH) 2.61 uIU/mL (0.358-3.74); Triglycerides 147 mg/dL; Very Low Density Lipoprotein 29 mg/dL (5-40)
[2023-08-31 15:19] LABS: Hemoglobin A1c 5.5 % (3.8-5.6)
== END | disposition home or self-care (01) ==
LOC: LABSPEC 08:43
PROVIDERS: Visit Provider Nurse Practitioner Family
DX: Z13.6 Encounter for screening for cardiovascular disorders (principal); Z13.228 Encounter for screening for other metabolic disorders
CPT/HCPCS: 36415; 80053; 80061; 83036; 84443; 85025